=== PATIENT | male | born 1955 | race Caucasian/White ===

== ENCOUNTER 2021-08-19 19:11 | Inpatient (IN) | payer OTHER ==
[~2021-08-19] VITALS: Ht 172.7 cm; Wt 85.7 kg
[2021-08-19] MEDS ORDERED: PANTOPRAZOLE SODIUM 40 MG/VIAL IV ONE (19:30)
[2021-08-19] MEDS ORDERED: SODIUM CHLORIDE 0.9% 1,000 ML IV ONE (19:30)
[2021-08-19] MEDS ORDERED: FENTANYL 2500MCG/250ML PMX 250 ML IV ONE (19:30)
[2021-08-19] MEDS ORDERED: OCTREOTIDE 1,000 MCG in SODIUM CHLORIDE 0.9% 100 ML IV PRN (19:30)
[2021-08-19] MEDS ORDERED: SUCCINYLCHOLINE CHLORIDE 200MG/10ML IV ONE ×2 (19:30→21:45)
[2021-08-19] MEDS ORDERED: ETOMIDATE 2MG/ML 10ML VIAL IV ONE (19:30)
[2021-08-19] MEDS ORDERED: MIDAZOLAM 100MG/100ML PMX 100 ML IV SCH (19:30)
[2021-08-19 19:54] LABS: MEAN CORPUSCULAR HEMOGLOBIN 33.2 pg (28.0-32.0); MEAN CORPUSCULAR VOLUME 99.1 fL (80.0-94.0); MEAN PLATELET VOLUME 8.3 fl (7.4-10.4); PLATELET 136 x1000/uL (130-400); RED BLOOD CELL COUNT 1.26 mill/uL (4.7-6.1); RED CELL DISTRIBUTION WIDTH 14.3 % (11.6-14.6)
[2021-08-19 20:04] LABS: CHLORIDE 122 mEq/L (98-107)
[2021-08-19 20:05] LABS: INR 1.6; PROTHROMBIN TIME 16.7 sec (9.6-11.0)
[2021-08-19 20:08] LABS: ETHANOL BLOOD 54 mg/dL
[2021-08-19 20:11] LABS: HEMATOCRIT. 12.5 % (42.0-52.0); HEMOGLOBIN. 4.2 g/dL (14.0-18.0)
[2021-08-19] MEDS ORDERED: KCL 10MEQ/50ML PREMIX 50 ML IV ONE ×2 (20:45)
[2021-08-19 20:47] LABS: PLATELET ESTIMATE NORMAL
[2021-08-19 21:40] LABS: BG BASE EXCESS -12.8 mmol/L (-2.0-2.0); BG DEOXYHEMOGLOBIN 20.6 % (0.0-5.0); BG FRACTION INSPIRED OXYGEN 50; BG HCO3 ACT 15.8 mmol/L (22.0-26.0); BG OXYGEN SATURATION 79.2 % (92.0-98.5); BG OXYHEMOGLOBIN 78.4 % (94.0-97.0); BG PCO2 54.6 mmHg (35.0-45.0); BG PO2 67.7 mmHg (75.0-100.0); BG SAMPLE SITE RIGHT RADIAL; BG TOTAL HEMOGLOBIN 5.2 g/dL (12.0-18.0); BG VENT MODE VENT - AC
[2021-08-19] MEDS ORDERED: MIDAZOLAM HCL 2 MG/2 ML VIAL IV ONE (22:30)
[2021-08-19] MEDS ORDERED: IOHEXOL-350 100 ML BOTTLE ONE (22:33)
[2021-08-19] MEDS ORDERED: PROPOFOL 10MG/ML 100ML 100 ML IV PRN (23:30)
[2021-08-20] VITALS (93 sets, daily range): BP systolic 82–188; BP diastolic 36–77
[2021-08-20] MEDS ORDERED: DEXTROSE 50% WATER 50ML SYRINGE IV PRN (02:00)
[2021-08-20] MEDS ORDERED: SODIUM BICARBONATE 8.4% 1 MEQ/ML 50ML SYR IV SCH (02:30)
[2021-08-20] MEDS ORDERED: PROPOFOL 10MG/ML 100ML 100 ML IV PRN (02:30)
[2021-08-20] MEDS: FENTANYL 2500MCG/250ML PMX 250 ML IV PRN ×3 (02:42→20:42)
[2021-08-20] MEDS ORDERED: NOREPINEPHRINE 32 MG in DEXT 5% WATER 218 ML IV PRN (03:00)
[2021-08-20] MEDS ORDERED: OCTREOTIDE 1,000 MCG in SODIUM CHLORIDE 0.9% 98 ML IV PRN (03:00)
[2021-08-20] MEDS ORDERED: SODIUM CHL 0.9% + KCL 20MEQ/L 1,000 ML IV SCH (03:00)
[2021-08-20] MEDS ORDERED: PANTOPRAZOLE 80 MG in SODIUM CHLORIDE 0.9% 100 ML IV SCH (03:00)
[2021-08-20] MEDS: KCL 20MEQ/100ML PREMIX 100 ML IV ONE (04:08)
[2021-08-20] MEDS: KCL 20MEQ/100ML PREMIX 100 ML IV SCH ×2 (04:43→06:08)
[2021-08-20] MEDS: BLOOD SUGAR DIAGNOSTIC STRIP TEST SCH ×4 (06:02→23:34)
[2021-08-20] MEDS: INSULIN LISPRO 100 UNITS/ML SUBCUT SCH ×3 (06:03→17:47)
[2021-08-20] MEDS ORDERED: SUCCINYLCHOLINE CHLORIDE 200MG/10ML IV ONE (07:43)
[2021-08-20] MEDS ORDERED: ETOMIDATE 2MG/ML 10ML VIAL IV ONE (07:43)
[2021-08-20] MEDS ORDERED: ATEN100T MT (07:52)
[2021-08-20] MEDS ORDERED: LORA2ORA5 PO (07:52)
[2021-08-20] MEDS ORDERED: LISI40TA13 MT (07:52)
[2021-08-20] MEDS ORDERED: SIMV-46 PO (07:52)
[2021-08-20] MEDS ORDERED: SILD20TA PO (07:52)
[2021-08-20] MEDS ORDERED: SODIUM BICARBONATE 8.4% 1 MEQ/ML 50ML SYR IV NR (08:40)
[2021-08-20] MEDS ORDERED: SODIUM BICARBONATE 8.4% 1 MEQ/ML 50ML SYR IV ONE (08:41)
[2021-08-20 08:55] LABS: BASOPHILS % 0.2 % (0.0-2.0); EOSINOPHILS % 1.3 % (0.0-5.0); HEMATOCRIT. 24.9 % (42.0-52.0); HEMOGLOBIN. 8.5 g/dL (14.0-18.0); LYMPHOCYTES % 20.9 % (20.0-50.0); MEAN CORPUSCULAR HEMOGLOBIN 30.9 pg (28.0-32.0); MEAN CORPUSCULAR VOLUME 90.1 fL (80.0-94.0); MEAN PLATELET VOLUME 8.7 fl (7.4-10.4); MONOCYTES % 6.8 % (2.0-8.0); NEUTROPHILS % 70.8 % (40.0-76.0); PLATELET 155 x1000/uL (130-400); RED BLOOD CELL COUNT 2.76 mill/uL (4.7-6.1); RED CELL DISTRIBUTION WIDTH 15.5 % (11.6-14.6)
[2021-08-20 08:59] LABS: CHLORIDE 111 mEq/L (98-107)
[2021-08-20] MEDS ORDERED: ATROPINE SULFATE 1MG/10ML SYR IV NR (09:00)
[2021-08-20 09:07] LABS: INR 1.2; PHOSPHORUS 1.4 mg/dL (2.5-4.9); PROTHROMBIN TIME 12.4 sec (9.6-11.0)
[2021-08-20 09:08] LABS: BG BASE EXCESS -0.9 mmol/L (-2.0-2.0); BG CARBOXYHEMOGLOBIN 0.2 % (0.5-1.5); BG DEOXYHEMOGLOBIN 1.2 % (0.0-5.0); BG FRACTION INSPIRED OXYGEN 80; BG HCO3 ACT 20.2 mmol/L (22.0-26.0); BG METHEMOGLOBIN 0.6 % (0.0-1.5); BG OXYGEN SATURATION 98.8 % (92.0-98.5); BG PCO2 22.6 mmHg (35.0-45.0); BG PO2 390.3 mmHg (75.0-100.0); BG SAMPLE SITE LEFT BRACHIAL; BG TOTAL HEMOGLOBIN 9.1 g/dL (12.0-18.0); BG VENT MODE VENT - AC
[2021-08-20] MEDS ORDERED: IPRATROPIUM/ALBUTEROL 0.5-3(2.5)MG/3ML NEB HHN PRN (09:30)
[2021-08-20] MEDS ORDERED: CEFTRIAXONE 1 G PREMIX 50 ML IV ONE (09:30)
[2021-08-20] MEDS: MIDAZOLAM HCL 100 MG in SODIUM CHLORIDE 0.9% 80 ML IV PRN ×2 (10:39→20:42)
[2021-08-20] MEDS ORDERED: CALCIUM GLUCONATE 1GM PREMIX 50 ML IV NR (11:00)
[2021-08-20] MEDS ORDERED: SODIUM PHOS,M-BASIC-D-BASIC 15 MM in DEXT 5% WATER 245 ML IV NR (11:00)
[2021-08-20] MEDS ORDERED: MAGNESIUM 4 G PREMIX 100 ML IV NR (11:00)
[2021-08-20] MEDS: DEXT 5%/0.45% NACL 1000ML 1,000 ML IV SCH ×2 (11:07→23:34)
[2021-08-20] MEDS: CEFTRIAXONE 1,000 MG in DEXTROSE 5% WATER 50 ML IV SCH (11:32)
[2021-08-20] MEDS: PANTOPRAZOLE SODIUM 40 MG/VIAL IV SCH ×2 (11:38→21:47)
[2021-08-20] MEDS ORDERED: FOLIC ACID 1 MG, THIAMINE HCL 100 MG, MVI, ADULT NO.1 10 ML in DEXTROSE 5% WATER 1,000 ML IV ONE ×4 (12:00)
[2021-08-20 12:25] LABS: TOTAL IRON BINDING CAPACITY 347 ug/dL (250-450)
[2021-08-20 12:39] LABS: FERRITIN 31 ng/mL (22-322)
[2021-08-20 12:51] LABS: VITAMIN B12 SERUM 316 pg/mL (211-911)
[2021-08-20] MEDS ORDERED: MIDAZOLAM HCL 5 MG/5 ML VIAL ONE (13:59)
[2021-08-20] MEDS ORDERED: FENTANYL CITRATE/PF 50MCG/ML 2ML VIAL ONE (13:59)
[2021-08-20] MEDS ORDERED: OCTREOTIDE 1,000 MCG in SODIUM CHLORIDE 0.9% 98 ML IV SCH (14:00)
[2021-08-20] MEDS ORDERED: MIDAZOLAM HCL 5 MG/5 ML VIAL IV PRN (14:15)
[2021-08-20] MEDS: IPRATROPIUM/ALBUTEROL 0.5-3(2.5)MG/3ML NEB HHN SCH (20:19)
[2021-08-20] MEDS: NOREPINEPHRINE 32 MG in DEXT 5% WATER 218 ML IV PRN (20:44)
[2021-08-21] VITALS (90 sets, daily range): BP systolic 79–161; BP diastolic 30–119
[2021-08-21] MEDS: INSULIN LISPRO 100 UNITS/ML SUBCUT SCH ×4 (00:13→17:42)
[2021-08-21] MEDS: IPRATROPIUM/ALBUTEROL 0.5-3(2.5)MG/3ML NEB HHN SCH ×4 (02:15→20:23)
[2021-08-21] MEDS: BLOOD SUGAR DIAGNOSTIC STRIP TEST SCH ×3 (05:54→17:42)
[2021-08-21 05:58] LABS: BASOPHILS % 0.4 % (0.0-2.0); EOSINOPHILS % 1.6 % (0.0-5.0); HEMATOCRIT. 24.4 % (42.0-52.0); HEMOGLOBIN. 8.2 g/dL (14.0-18.0); LYMPHOCYTES % 11.7 % (20.0-50.0); MEAN CORPUSCULAR HEMOGLOBIN 30.7 pg (28.0-32.0); MEAN CORPUSCULAR VOLUME 91.1 fL (80.0-94.0); MEAN PLATELET VOLUME 8.6 fl (7.4-10.4); MONOCYTES % 4.4 % (2.0-8.0); NEUTROPHILS % 81.9 % (40.0-76.0); PLATELET 155 x1000/uL (130-400); RED BLOOD CELL COUNT 2.68 mill/uL (4.7-6.1); RED CELL DISTRIBUTION WIDTH 16.5 % (11.6-14.6)
[2021-08-21 06:07] LABS: CHLORIDE 112 mEq/L (98-107); INR 1.1; PROTHROMBIN TIME 11.3 sec (9.6-11.0)
[2021-08-21 06:14] LABS: PHOSPHORUS 3.2 mg/dL (2.5-4.9)
[2021-08-21] MEDS: MIDAZOLAM HCL 100 MG in SODIUM CHLORIDE 0.9% 80 ML IV PRN ×2 (06:31→17:43)
[2021-08-21] MEDS: FENTANYL 2500MCG/250ML PMX 250 ML IV PRN ×2 (06:33→21:18)
[2021-08-21] MEDS: PANTOPRAZOLE SODIUM 40 MG/VIAL IV SCH ×2 (08:18→21:09)
[2021-08-21 08:38] LABS: BG BASE EXCESS -4.3 mmol/L (-2.0-2.0); BG CARBOXYHEMOGLOBIN 0.3 % (0.5-1.5); BG DEOXYHEMOGLOBIN 4.7 % (0.0-5.0); BG HCO3 ACT 19.2 mmol/L (22.0-26.0); BG METHEMOGLOBIN 0.5 % (0.0-1.5); BG OXYGEN SATURATION 95.3 % (92.0-98.5); BG OXYHEMOGLOBIN 94.5 % (94.0-97.0); BG PCO2 29.6 mmHg (35.0-45.0); BG PO2 83.7 mmHg (75.0-100.0); BG SAMPLE SITE LEFT BRACHIAL; BG TOTAL HEMOGLOBIN 9.1 g/dL (12.0-18.0); BG VENT MODE VENT - AC
[2021-08-21] MEDS ORDERED: POTASSIUM CHLORIDE 20MEQ/PACKET PO SCH (09:45)
[2021-08-21] MEDS: CEFTRIAXONE 1,000 MG in DEXTROSE 5% WATER 50 ML IV SCH (10:29)
[2021-08-21] MEDS: SUCRALFATE 1 G/10 ML UDC PO SCH ×3 (10:30→21:09)
[2021-08-21] MEDS: ACETAMINOPHEN 650MG/20.3ML UDC PO PRN (12:37)
[2021-08-21] MEDS: DEXT 5%/0.45% NACL 1000ML 1,000 ML IV SCH (12:37)
[2021-08-21] MEDS: CHLORDIAZEPOXIDE 25MG CAPSULE NG SCH ×2 (13:58→21:09)
[2021-08-22] VITALS (77 sets, daily range): BP systolic 71–129; BP diastolic 32–90
[2021-08-22] MEDS: IPRATROPIUM/ALBUTEROL 0.5-3(2.5)MG/3ML NEB HHN SCH ×4 (00:13→20:58)
[2021-08-22] MEDS: BLOOD SUGAR DIAGNOSTIC STRIP TEST SCH ×5 (00:54→23:52)
[2021-08-22] MEDS: NOREPINEPHRINE 32 MG in DEXT 5% WATER 218 ML IV PRN ×2 (01:09→17:23)
[2021-08-22] MEDS: DEXT 5%/0.45% NACL 1000ML 1,000 ML IV SCH ×2 (03:22→16:47)
[2021-08-22] MEDS: MIDAZOLAM HCL 100 MG in SODIUM CHLORIDE 0.9% 80 ML IV PRN ×2 (04:12→17:23)
[2021-08-22] MEDS: CHLORDIAZEPOXIDE 25MG CAPSULE NG SCH ×3 (05:15→21:05)
[2021-08-22] MEDS: INSULIN LISPRO 100 UNITS/ML SUBCUT SCH ×5 (05:15→23:52)
[2021-08-22 05:19] LABS: HEMATOCRIT. 24.3 % (42.0-52.0); HEMOGLOBIN. 8.1 g/dL (14.0-18.0); MEAN CORPUSCULAR HEMOGLOBIN 31.1 pg (28.0-32.0); MEAN CORPUSCULAR VOLUME 93.3 fL (80.0-94.0); MEAN PLATELET VOLUME 9.2 fl (7.4-10.4); PLATELET 167 x1000/uL (130-400); RED BLOOD CELL COUNT 2.61 mill/uL (4.7-6.1); RED CELL DISTRIBUTION WIDTH 16.7 % (11.6-14.6)
[2021-08-22] MEDS: SUCRALFATE 1 G/10 ML UDC PO SCH ×4 (05:37→20:03)
[2021-08-22] MEDS: PANTOPRAZOLE SODIUM 40 MG/VIAL IV SCH ×2 (09:33→20:03)
[2021-08-22] MEDS: FENTANYL 2500MCG/250ML PMX 250 ML IV PRN ×2 (10:16→22:31)
[2021-08-22] MEDS: PIPERACILLIN/TAZOBACTAM 3.375 G in DEXTROSE 5% WATER 50 ML IV SCH ×2 (12:23→21:50)
[2021-08-22 13:00] LABS: PLATELET ESTIMATE NORMAL
[2021-08-23] VITALS (98 sets, daily range): BP systolic 91–164; BP diastolic 44–72
[2021-08-23] MEDS: IPRATROPIUM/ALBUTEROL 0.5-3(2.5)MG/3ML NEB HHN SCH ×4 (02:43→20:12)
[2021-08-23] MEDS: CHLORDIAZEPOXIDE 25MG CAPSULE NG SCH ×3 (05:04→22:15)
[2021-08-23] MEDS: PIPERACILLIN/TAZOBACTAM 3.375 G in DEXTROSE 5% WATER 50 ML IV SCH ×3 (05:05→22:15)
[2021-08-23] MEDS: DEXT 5%/0.45% NACL 1000ML 1,000 ML IV SCH ×2 (05:05→18:34)
[2021-08-23] MEDS: MIDAZOLAM HCL 100 MG in SODIUM CHLORIDE 0.9% 80 ML IV PRN ×2 (05:24→23:27)
[2021-08-23 05:33] LABS: MEAN CORPUSCULAR HEMOGLOBIN 30.5 pg (28.0-32.0); PLATELET 127 x1000/uL (130-400); RED BLOOD CELL COUNT 2.19 mill/uL (4.7-6.1); RED CELL DISTRIBUTION WIDTH 16.8 % (11.6-14.6)
[2021-08-23] MEDS: INSULIN LISPRO 100 UNITS/ML SUBCUT SCH ×3 (05:40→17:26)
[2021-08-23] MEDS: BLOOD SUGAR DIAGNOSTIC STRIP TEST SCH ×3 (05:40→17:26)
[2021-08-23 06:26] LABS: HEMATOCRIT. 20.1 % (42.0-52.0); HEMOGLOBIN. 6.7 g/dL (14.0-18.0)
[2021-08-23] MEDS: SUCRALFATE 1 G/10 ML UDC PO SCH ×4 (06:30→21:23)
[2021-08-23 07:36] LABS: PLATELET ESTIMATE SLIGHTLY DECREASED
[2021-08-23] MEDS: PANTOPRAZOLE SODIUM 40 MG/VIAL IV SCH ×2 (08:05→21:23)
[2021-08-23] MEDS: FENTANYL 2500MCG/250ML PMX 250 ML IV PRN (11:55)
[2021-08-23] MEDS: DOCUSATE SODIUM SUGAR FREE 100MG/10ML UDC NG SCH (13:38)
[2021-08-23] MEDS: METOCLOPRAMIDE HCL 10MG/2ML VIAL IV SCH (17:26)
[2021-08-23 20:20] LABS: HEMATOCRIT 26.9 % (42.0-52.0); HEMOGLOBIN 9.3 g/dL (14.0-18.0)
[2021-08-24] VITALS (72 sets, daily range): BP systolic 89–141; BP diastolic 42–84
[2021-08-24] MEDS: IPRATROPIUM/ALBUTEROL 0.5-3(2.5)MG/3ML NEB HHN SCH ×5 (00:07→20:53)
[2021-08-24] MEDS: BLOOD SUGAR DIAGNOSTIC STRIP TEST SCH ×4 (00:27→17:15)
[2021-08-24] MEDS: METOCLOPRAMIDE HCL 10MG/2ML VIAL IV SCH ×4 (00:34→17:15)
[2021-08-24 01:13] LABS: HEMATOCRIT 26.6 % (42.0-52.0); HEMOGLOBIN 9.4 g/dL (14.0-18.0)
[2021-08-24] MEDS: FENTANYL 2500MCG/250ML PMX 250 ML IV PRN (01:13)
[2021-08-24] MEDS: INSULIN LISPRO 100 UNITS/ML SUBCUT SCH ×4 (06:00→17:15)
[2021-08-24] MEDS: PIPERACILLIN/TAZOBACTAM 3.375 G in DEXTROSE 5% WATER 50 ML IV SCH ×3 (06:03→22:57)
[2021-08-24] MEDS: SUCRALFATE 1 G/10 ML UDC PO SCH ×4 (06:03→21:34)
[2021-08-24] MEDS: CHLORDIAZEPOXIDE 25MG CAPSULE NG SCH ×3 (06:04→22:58)
[2021-08-24 06:07] LABS: HEMATOCRIT. 25.3 % (42.0-52.0); HEMOGLOBIN. 8.8 g/dL (14.0-18.0); MEAN CORPUSCULAR HEMOGLOBIN 31.8 pg (28.0-32.0); MEAN CORPUSCULAR VOLUME 90.8 fL (80.0-94.0); MEAN PLATELET VOLUME 8.9 fl (7.4-10.4); PLATELET 110 x1000/uL (130-400); RED BLOOD CELL COUNT 2.78 mill/uL (4.7-6.1); RED CELL DISTRIBUTION WIDTH 15.5 % (11.6-14.6)
[2021-08-24 07:42] LABS: PLATELET ESTIMATE SLIGHTLY DECREASED
[2021-08-24] MEDS: PANTOPRAZOLE SODIUM 40 MG/VIAL IV SCH ×2 (08:37→21:34)
[2021-08-24] MEDS: DOCUSATE SODIUM SUGAR FREE 100MG/10ML UDC NG SCH (08:37)
[2021-08-24] MEDS: DEXT 5%/0.45% NACL 1000ML 1,000 ML IV SCH ×2 (08:38→21:35)
[2021-08-24 13:09] LABS: HEMATOCRIT 27.2 % (42.0-52.0); HEMOGLOBIN 9.1 g/dL (14.0-18.0)
[2021-08-25] VITALS (73 sets, daily range): BP systolic 93–169; BP diastolic 34–98
[2021-08-25] MEDS: METOCLOPRAMIDE HCL 10MG/2ML VIAL IV SCH ×4 (01:21→18:04)
[2021-08-25] MEDS: IPRATROPIUM/ALBUTEROL 0.5-3(2.5)MG/3ML NEB HHN SCH ×4 (01:41→20:40)
[2021-08-25] MEDS: FENTANYL 2500MCG/250ML PMX 250 ML IV PRN (01:59)
[2021-08-25] MEDS: ACETAMINOPHEN 650MG/20.3ML UDC PO PRN ×2 (04:14→11:22)
[2021-08-25 05:26] LABS: HEMATOCRIT. 23.9 % (42.0-52.0); HEMOGLOBIN. 8.4 g/dL (14.0-18.0); MEAN CORPUSCULAR HEMOGLOBIN 32.1 pg (28.0-32.0); MEAN CORPUSCULAR VOLUME 91.2 fL (80.0-94.0); MEAN PLATELET VOLUME 8.7 fl (7.4-10.4); PLATELET 117 x1000/uL (130-400); RED BLOOD CELL COUNT 2.62 mill/uL (4.7-6.1); RED CELL DISTRIBUTION WIDTH 15.3 % (11.6-14.6)
[2021-08-25] MEDS: BLOOD SUGAR DIAGNOSTIC STRIP TEST SCH ×4 (05:31→17:55)
[2021-08-25] MEDS: INSULIN LISPRO 100 UNITS/ML SUBCUT SCH ×4 (05:31→17:55)
[2021-08-25] MEDS: SUCRALFATE 1 G/10 ML UDC PO SCH ×4 (05:38→21:49)
[2021-08-25] MEDS: PIPERACILLIN/TAZOBACTAM 3.375 G in DEXTROSE 5% WATER 50 ML IV SCH ×3 (05:38→21:48)
[2021-08-25] MEDS: CHLORDIAZEPOXIDE 25MG CAPSULE NG SCH ×3 (05:38→21:49)
[2021-08-25 07:27] LABS: PLATELET ESTIMATE DECREASED
[2021-08-25] MEDS: PANTOPRAZOLE SODIUM 40 MG/VIAL IV SCH ×2 (09:32→21:00)
[2021-08-25] MEDS: DOCUSATE SODIUM SUGAR FREE 100MG/10ML UDC NG SCH (09:32)
[2021-08-25] MEDS ORDERED: POTASSIUM CHLORIDE 20MEQ/PACKET NG SCH (10:00)
[2021-08-25] MEDS ORDERED: DILTIAZEM HCL 5MG/ML 5ML VIAL IV NR (11:00)
[2021-08-25] MEDS: DEXT 5%/0.45% NACL 1000ML 1,000 ML IV SCH (11:23)
[2021-08-25 11:40] LABS: BG BASE EXCESS -6.6 mmol/L (-2.0-2.0); BG CARBOXYHEMOGLOBIN 0.3 % (0.5-1.5); BG DEOXYHEMOGLOBIN 2.8 % (0.0-5.0); BG FRACTION INSPIRED OXYGEN 35; BG METHEMOGLOBIN 0.4 % (0.0-1.5); BG OXYGEN SATURATION 97.2 % (92.0-98.5); BG OXYHEMOGLOBIN 96.5 % (94.0-97.0); BG PCO2 32.3 mmHg (35.0-45.0); BG PH 7.364 (7.350-7.450); BG PO2 99.6 mmHg (75.0-100.0); BG SAMPLE SITE LEFT RADIAL; BG TOTAL HEMOGLOBIN 9.1 g/dL (12.0-18.0); BG VENT MODE VENT - CPAP
[2021-08-25] MEDS: ACETYLCYSTEINE 100MG/ML 10% VIAL 4ML INH SCH (13:59)
[2021-08-25] MEDS ORDERED: POTASSIUM CHLORIDE 20MEQ/PACKET PO NR (14:15)
[2021-08-25] MEDS: LORAZEPAM 2MG/ML CPJ IV PRN ×2 (15:14→21:48)
[2021-08-25] MEDS: METOPROLOL TARTRATE 25MG TABLET PO SCH ×2 (15:15→23:31)
[2021-08-26] VITALS (54 sets, daily range): BP systolic 99–173; BP diastolic 38–134
[2021-08-26] MEDS: DEXT 5%/0.45% NACL 1000ML 1,000 ML IV SCH ×2 (00:39→13:23)
[2021-08-26] MEDS: METOCLOPRAMIDE HCL 10MG/2ML VIAL IV SCH ×3 (00:39→11:25)
[2021-08-26] MEDS: BLOOD SUGAR DIAGNOSTIC STRIP TEST SCH ×3 (00:40→11:25)
[2021-08-26 05:25] LABS: HEMOGLOBIN. 8.5 g/dL (14.0-18.0); MEAN CORPUSCULAR VOLUME 90.6 fL (80.0-94.0); MEAN PLATELET VOLUME 8.4 fl (7.4-10.4); PLATELET 153 x1000/uL (130-400); RED BLOOD CELL COUNT 2.65 mill/uL (4.7-6.1); RED CELL DISTRIBUTION WIDTH 15.1 % (11.6-14.6)
[2021-08-26] MEDS: INSULIN LISPRO 100 UNITS/ML SUBCUT SCH ×3 (06:00→11:27)
[2021-08-26] MEDS: SUCRALFATE 1 G/10 ML UDC PO SCH ×3 (06:25→21:01)
[2021-08-26] MEDS: PIPERACILLIN/TAZOBACTAM 3.375 G in DEXTROSE 5% WATER 50 ML IV SCH ×3 (06:25→22:06)
[2021-08-26] MEDS: ACETAMINOPHEN 650MG/20.3ML UDC PO PRN ×2 (06:25→19:40)
[2021-08-26] MEDS: CHLORDIAZEPOXIDE 25MG CAPSULE NG SCH (06:26)
[2021-08-26] MEDS: LORAZEPAM 2MG/ML CPJ IV PRN ×3 (06:28→15:05)
[2021-08-26] MEDS: ACETYLCYSTEINE 100MG/ML 10% VIAL 4ML INH SCH ×2 (07:36→13:44)
[2021-08-26] MEDS: IPRATROPIUM/ALBUTEROL 0.5-3(2.5)MG/3ML NEB HHN SCH ×3 (07:36→19:53)
[2021-08-26 07:38] LABS: PLATELET ESTIMATE NORMAL
[2021-08-26] MEDS: DOCUSATE SODIUM SUGAR FREE 100MG/10ML UDC NG SCH (08:22)
[2021-08-26] MEDS: PANTOPRAZOLE SODIUM 40 MG/VIAL IV SCH ×2 (08:22→21:01)
[2021-08-26] MEDS: METOPROLOL TARTRATE 25MG TABLET PO SCH ×2 (08:22→21:01)
[2021-08-26 08:30] LABS: BG BASE EXCESS -6.9 mmol/L (-2.0-2.0); BG CARBOXYHEMOGLOBIN 0.3 % (0.5-1.5); BG DEOXYHEMOGLOBIN 1.5 % (0.0-5.0); BG FRACTION INSPIRED OXYGEN 35; BG HCO3 ACT 16.2 mmol/L (22.0-26.0); BG METHEMOGLOBIN 0.3 % (0.0-1.5); BG OXYGEN SATURATION 98.5 % (92.0-98.5); BG OXYHEMOGLOBIN 97.9 % (94.0-97.0); BG PCO2 24.5 mmHg (35.0-45.0); BG PH 7.438 (7.350-7.450); BG PO2 126.3 mmHg (75.0-100.0); BG SAMPLE SITE RIGHT RADIAL; BG TOTAL HEMOGLOBIN 8.6 g/dL (12.0-18.0); BG VENT MODE VENT - SIMV
[2021-08-26] MEDS: CHLORDIAZEPOXIDE 5 MG CAPSULE NG SCH ×2 (13:22→22:06)
[2021-08-27] VITALS (31 sets, daily range): BP systolic 94–165; BP diastolic 48–107
[2021-08-27] MEDS: ACETYLCYSTEINE 100MG/ML 10% VIAL 4ML INH SCH ×3 (00:02→14:13)
[2021-08-27] MEDS: IPRATROPIUM/ALBUTEROL 0.5-3(2.5)MG/3ML NEB HHN SCH ×4 (00:02→20:36)
[2021-08-27] MEDS: INSULIN LISPRO 100 UNITS/ML SUBCUT SCH ×4 (00:06→18:00)
[2021-08-27] MEDS: BLOOD SUGAR DIAGNOSTIC STRIP TEST SCH ×4 (00:06→18:46)
[2021-08-27] MEDS: METOCLOPRAMIDE HCL 10MG/2ML VIAL IV SCH ×4 (00:10→18:53)
[2021-08-27] MEDS: ACETAMINOPHEN 650MG/20.3ML UDC PO PRN ×2 (02:15→20:23)
[2021-08-27 05:33] LABS: HEMATOCRIT. 23.8 % (42.0-52.0); HEMOGLOBIN. 8.2 g/dL (14.0-18.0); MEAN CORPUSCULAR VOLUME 90.4 fL (80.0-94.0); MEAN PLATELET VOLUME 8.2 fl (7.4-10.4); PLATELET 181 x1000/uL (130-400); RED BLOOD CELL COUNT 2.63 mill/uL (4.7-6.1); RED CELL DISTRIBUTION WIDTH 14.8 % (11.6-14.6)
[2021-08-27 05:44] LABS: CHLORIDE 112 mEq/L (98-107)
[2021-08-27] MEDS: PIPERACILLIN/TAZOBACTAM 3.375 G in DEXTROSE 5% WATER 50 ML IV SCH (06:15)
[2021-08-27] MEDS: SUCRALFATE 1 G/10 ML UDC PO SCH ×4 (06:15→20:22)
[2021-08-27] MEDS: CHLORDIAZEPOXIDE 5 MG CAPSULE NG SCH (06:15)
[2021-08-27] MEDS: LORAZEPAM 2MG/ML CPJ IV PRN (06:43)
[2021-08-27 07:54] LABS: BG BASE EXCESS -5.4 mmol/L (-2.0-2.0); BG CARBOXYHEMOGLOBIN 0.3 % (0.5-1.5); BG DEOXYHEMOGLOBIN 2.2 % (0.0-5.0); BG HCO3 ACT 17.2 mmol/L (22.0-26.0); BG METHEMOGLOBIN 0.3 % (0.0-1.5); BG OXYGEN SATURATION 97.8 % (92.0-98.5); BG OXYHEMOGLOBIN 97.2 % (94.0-97.0); BG PCO2 24.1 mmHg (35.0-45.0); BG PH 7.472 (7.350-7.450); BG PO2 97.2 mmHg (75.0-100.0); BG SAMPLE SITE RIGHT RADIAL; BG TOTAL HEMOGLOBIN 8.4 g/dL (12.0-18.0); BG VENT MODE VENT - AC
[2021-08-27 08:00] LABS: PLATELET ESTIMATE NORMAL
[2021-08-27] MEDS: DOCUSATE SODIUM SUGAR FREE 100MG/10ML UDC NG SCH (08:24)
[2021-08-27] MEDS: PANTOPRAZOLE SODIUM 40 MG/VIAL IV SCH ×2 (08:24→20:22)
[2021-08-27] MEDS: METOPROLOL TARTRATE 25MG TABLET PO SCH ×2 (08:25→20:24)
[2021-08-27] MEDS ORDERED: POTASSIUM CHLORIDE 20MEQ TABLET SR PO SCH (09:45)
[2021-08-27] MEDS ORDERED: FLUMAZENIL 0.1 MG/ML 5ML VIAL IV SCH (10:00)
[2021-08-27] MEDS ORDERED: VANCOMYCIN 1,750 MG in DEXT 5% WATER 500 ML IV NR (12:00)
[2021-08-27] MEDS: DEXT 5%/0.45% NACL 1000ML 1,000 ML IV SCH ×2 (12:31→15:17)
[2021-08-27] MEDS ORDERED: VANCOMYCIN 1GM PMX (XELLIA) 200 ML IV SCH (23:00)
[2021-08-28] VITALS (48 sets, daily range): BP systolic 115–174; BP diastolic 35–99
[2021-08-28] MEDS: METOCLOPRAMIDE HCL 10MG/2ML VIAL IV SCH ×4 (00:12→17:16)
[2021-08-28] MEDS: IPRATROPIUM/ALBUTEROL 0.5-3(2.5)MG/3ML NEB HHN SCH ×4 (00:18→19:43)
[2021-08-28] MEDS: ACETYLCYSTEINE 100MG/ML 10% VIAL 4ML INH SCH ×3 (00:18→12:55)
[2021-08-28] MEDS: SUCRALFATE 1 G/10 ML UDC PO SCH ×4 (05:54→21:05)
[2021-08-28] MEDS: VANCOMYCIN 1GM PMX (XELLIA) 200 ML IV SCH (05:54)
[2021-08-28] MEDS: ACETAMINOPHEN 650MG/20.3ML UDC PO PRN ×2 (05:55→14:20)
[2021-08-28] MEDS: DEXT 5%/0.45% NACL 1000ML 1,000 ML IV SCH ×2 (05:56→17:28)
[2021-08-28] MEDS: INSULIN LISPRO 100 UNITS/ML SUBCUT SCH ×4 (06:00→17:24)
[2021-08-28] MEDS: BLOOD SUGAR DIAGNOSTIC STRIP TEST SCH ×4 (06:03→17:24)
[2021-08-28 06:09] LABS: CHLORIDE 110 mEq/L (98-107)
[2021-08-28] MEDS ORDERED: POTASSIUM CHLORIDE 20MEQ/PACKET PO SCH (07:30)
[2021-08-28 08:44] LABS: BG BASE EXCESS -4.4 mmol/L (-2.0-2.0); BG CARBOXYHEMOGLOBIN 0.1 % (0.5-1.5); BG FRACTION INSPIRED OXYGEN 35; BG HCO3 ACT 18.1 mmol/L (22.0-26.0); BG METHEMOGLOBIN 0.5 % (0.0-1.5); BG OXYHEMOGLOBIN 98.4 % (94.0-97.0); BG PCO2 24.4 mmHg (35.0-45.0); BG PH 7.489 (7.350-7.450); BG PO2 166.9 mmHg (75.0-100.0); BG SAMPLE SITE RIGHT RADIAL; BG TOTAL HEMOGLOBIN 7.8 g/dL (12.0-18.0); BG VENT MODE VENT - AC
[2021-08-28] MEDS ORDERED: [UNRECOGNIZED DRUG - REMARK] XX SCH (09:30)
[2021-08-28] MEDS: PANTOPRAZOLE SODIUM 40 MG/VIAL IV SCH ×2 (09:48→21:05)
[2021-08-28] MEDS: METOPROLOL TARTRATE 25MG TABLET PO SCH ×2 (09:49→21:06)
[2021-08-28] MEDS: DOCUSATE SODIUM SUGAR FREE 100MG/10ML UDC NG SCH (09:50)
[2021-08-28] MEDS: MEROPENEM 1,000 MG in SODIUM CHLORIDE 0.9% 100 ML IV SCH ×2 (10:45→17:15)
[2021-08-28 11:56] LABS: CREATINE KINASE 121 IU/L (39-308)
[2021-08-28] MEDS ORDERED: LORAZEPAM 2MG/ML CPJ IV NR (12:45)
[2021-08-29] VITALS (53 sets, daily range): BP systolic 101–185; BP diastolic 55–137
[2021-08-29] MEDS: ACETYLCYSTEINE 100MG/ML 10% VIAL 4ML INH SCH ×3 (00:03→13:33)
[2021-08-29] MEDS: IPRATROPIUM/ALBUTEROL 0.5-3(2.5)MG/3ML NEB HHN SCH ×4 (00:04→20:46)
[2021-08-29] MEDS: VANCOMYCIN 1GM PMX (XELLIA) 200 ML IV SCH ×2 (00:37→18:02)
[2021-08-29] MEDS: METOCLOPRAMIDE HCL 10MG/2ML VIAL IV SCH ×4 (00:37→18:02)
[2021-08-29] MEDS: BLOOD SUGAR DIAGNOSTIC STRIP TEST SCH ×4 (00:37→18:01)
[2021-08-29] MEDS: MEROPENEM 1,000 MG in SODIUM CHLORIDE 0.9% 100 ML IV SCH ×3 (02:26→18:02)
[2021-08-29] MEDS: ACETAMINOPHEN 650MG/20.3ML UDC PO PRN ×2 (04:28→15:57)
[2021-08-29 05:36] LABS: HEMATOCRIT. 22.5 % (42.0-52.0); HEMOGLOBIN. 7.8 g/dL (14.0-18.0); MEAN CORPUSCULAR HEMOGLOBIN 31.5 pg (28.0-32.0); MEAN CORPUSCULAR VOLUME 90.4 fL (80.0-94.0); MEAN PLATELET VOLUME 8.3 fl (7.4-10.4); PLATELET 249 x1000/uL (130-400); RED BLOOD CELL COUNT 2.49 mill/uL (4.7-6.1); RED CELL DISTRIBUTION WIDTH 15.3 % (11.6-14.6)
[2021-08-29 05:39] LABS: CHLORIDE 114 mEq/L (98-107)
[2021-08-29] MEDS: INSULIN LISPRO 100 UNITS/ML SUBCUT SCH ×4 (06:00→18:00)
[2021-08-29 07:47] LABS: BG BASE EXCESS -7.1 mmol/L (-2.0-2.0); BG CARBOXYHEMOGLOBIN 0.3 % (0.5-1.5); BG DEOXYHEMOGLOBIN 1.1 % (0.0-5.0); BG HCO3 ACT 16.3 mmol/L (22.0-26.0); BG METHEMOGLOBIN 0.4 % (0.0-1.5); BG OXYGEN SATURATION 98.9 % (92.0-98.5); BG OXYHEMOGLOBIN 98.2 % (94.0-97.0); BG PCO2 25.9 mmHg (35.0-45.0); BG PH 7.418 (7.350-7.450); BG PO2 139.1 mmHg (75.0-100.0); BG SAMPLE SITE RIGHT RADIAL; BG TOTAL HEMOGLOBIN 8.4 g/dL (12.0-18.0); BG VENT MODE VENT - AC
[2021-08-29 07:51] LABS: PLATELET ESTIMATE NORMAL
[2021-08-29] MEDS ORDERED: POTASSIUM CHLORIDE 20MEQ/PACKET PO NR (09:20)
[2021-08-29] MEDS: PANTOPRAZOLE SODIUM 40 MG/VIAL IV SCH ×2 (09:21→20:54)
[2021-08-29] MEDS: METOPROLOL TARTRATE 25MG TABLET PO SCH ×2 (09:21→20:54)
[2021-08-29] MEDS: SUCRALFATE 1 G/10 ML UDC PO SCH ×4 (09:21→20:54)
[2021-08-29] MEDS: DOCUSATE SODIUM SUGAR FREE 100MG/10ML UDC NG SCH (09:22)
[2021-08-29] MEDS: DEXT 5%/0.45% NACL 1000ML 1,000 ML IV SCH ×2 (09:23→23:41)
[2021-08-29] MEDS ORDERED: MORPHINE SULFATE 2 MG/ML CPJ (NOT FOR IM USE) IV NR (10:23)
[2021-08-29] MEDS ORDERED: NALOXONE HCL 0.4MG/ML VIAL IV PRN (10:30)
[2021-08-29] MEDS ORDERED: MORPHINE SULFATE 2 MG/ML CPJ (NOT FOR IM USE) IV SCH (12:15)
[2021-08-29] MEDS: AMLODIPINE 10MG TABLET PO SCH (12:29)
[2021-08-29 13:34] LABS: BG BASE EXCESS -6.8 mmol/L (-2.0-2.0); BG CARBOXYHEMOGLOBIN 0.3 % (0.5-1.5); BG DEOXYHEMOGLOBIN 1.1 % (0.0-5.0); BG METHEMOGLOBIN 0.3 % (0.0-1.5); BG OXYGEN SATURATION 98.9 % (92.0-98.5); BG OXYHEMOGLOBIN 98.3 % (94.0-97.0); BG PCO2 24.2 mmHg (35.0-45.0); BG PH 7.438 (7.350-7.450); BG PO2 163.2 mmHg (75.0-100.0); BG SAMPLE SITE RIGHT RADIAL; BG TOTAL HEMOGLOBIN 10.2 g/dL (12.0-18.0); BG VENT MODE VENT - CPAP
[2021-08-29] MEDS: LORAZEPAM 2MG/ML CPJ IV PRN (14:26)
[2021-08-30] VITALS (52 sets, daily range): BP systolic 108–221; BP diastolic 57–142
[2021-08-30] MEDS: BLOOD SUGAR DIAGNOSTIC STRIP TEST SCH ×5 (00:02→23:45)
[2021-08-30] MEDS: METOCLOPRAMIDE HCL 10MG/2ML VIAL IV SCH ×5 (00:03→23:51)
[2021-08-30] MEDS: ACETAMINOPHEN 650MG/20.3ML UDC PO PRN ×3 (00:03→18:13)
[2021-08-30] MEDS: ACETYLCYSTEINE 100MG/ML 10% VIAL 4ML INH SCH ×2 (00:38→14:22)
[2021-08-30] MEDS: IPRATROPIUM/ALBUTEROL 0.5-3(2.5)MG/3ML NEB HHN SCH ×4 (00:38→21:12)
[2021-08-30] MEDS: MEROPENEM 1,000 MG in SODIUM CHLORIDE 0.9% 100 ML IV SCH ×3 (02:27→18:13)
[2021-08-30 05:35] LABS: HEMATOCRIT. 21.4 % (42.0-52.0); HEMOGLOBIN. 7.3 g/dL (14.0-18.0); MEAN CORPUSCULAR HEMOGLOBIN 30.9 pg (28.0-32.0); MEAN CORPUSCULAR VOLUME 90.4 fL (80.0-94.0); MEAN PLATELET VOLUME 8.2 fl (7.4-10.4); PLATELET 309 x1000/uL (130-400); RED BLOOD CELL COUNT 2.37 mill/uL (4.7-6.1); RED CELL DISTRIBUTION WIDTH 15.3 % (11.6-14.6)
[2021-08-30 05:45] LABS: CHLORIDE 113 mEq/L (98-107)
[2021-08-30] MEDS: INSULIN LISPRO 100 UNITS/ML SUBCUT SCH ×5 (06:00→23:45)
[2021-08-30] MEDS: SUCRALFATE 1 G/10 ML UDC PO SCH ×4 (06:30→21:38)
[2021-08-30 07:47] LABS: BG BASE EXCESS -8.2 mmol/L (-2.0-2.0); BG CARBOXYHEMOGLOBIN 0.3 % (0.5-1.5); BG HCO3 ACT 14.7 mmol/L (22.0-26.0); BG METHEMOGLOBIN 0.6 % (0.0-1.5); BG OXYHEMOGLOBIN 98.1 % (94.0-97.0); BG PCO2 21.4 mmHg (35.0-45.0); BG PH 7.454 (7.350-7.450); BG PO2 139.8 mmHg (75.0-100.0); BG SAMPLE SITE RIGHT RADIAL; BG TOTAL HEMOGLOBIN 7.5 g/dL (12.0-18.0); BG VENT MODE VENT - SIMV
[2021-08-30] MEDS: DOCUSATE SODIUM SUGAR FREE 100MG/10ML UDC NG SCH (09:00)
[2021-08-30] MEDS: PANTOPRAZOLE SODIUM 40 MG/VIAL IV SCH ×2 (09:01→21:38)
[2021-08-30] MEDS: METOPROLOL TARTRATE 25MG TABLET PO SCH ×2 (09:01→21:39)
[2021-08-30] MEDS: AMLODIPINE 10MG TABLET PO SCH (09:01)
[2021-08-30] MEDS: LORAZEPAM 2MG/ML CPJ IV PRN ×4 (09:23→23:51)
[2021-08-30 10:23] LABS: PLATELET ESTIMATE NORMAL
[2021-08-30] MEDS: DEXT 5%/0.45% NACL 1000ML 1,000 ML IV SCH (10:45)
[2021-08-30] MEDS: VANCOMYCIN 1GM PMX (XELLIA) 200 ML IV SCH (11:17)
[2021-08-30 16:18] LABS: HEMATOCRIT 25.1 % (42.0-52.0); HEMOGLOBIN 8.4 g/dL (14.0-18.0)
[2021-08-30] MEDS: HYDRALAZINE HCL 100MG TABLET PO SCH (18:13)
[2021-08-30] MEDS ORDERED: MORPHINE SULFATE 2 MG/ML CPJ (NOT FOR IM USE) IV NR (18:15)
[2021-08-30] MEDS ORDERED: VANCOMYCIN 750MG PMX (XELLIA) 150 ML IV SCH (23:00)
[2021-08-31] VITALS (50 sets, daily range): BP systolic 94–195; BP diastolic 44–124
[2021-08-31] MEDS: DEXT 5%/0.45% NACL 1000ML 1,000 ML IV SCH (00:55)
[2021-08-31] MEDS: IPRATROPIUM/ALBUTEROL 0.5-3(2.5)MG/3ML NEB HHN SCH ×4 (01:13→21:16)
[2021-08-31] MEDS: ACETYLCYSTEINE 100MG/ML 10% VIAL 4ML INH SCH ×3 (01:13→22:00)
[2021-08-31] MEDS: MEROPENEM 1,000 MG in SODIUM CHLORIDE 0.9% 100 ML IV SCH ×3 (03:11→17:48)
[2021-08-31 05:40] LABS: HEMOGLOBIN. 8.7 g/dL (14.0-18.0); MEAN CORPUSCULAR HEMOGLOBIN 30.4 pg (28.0-32.0); MEAN CORPUSCULAR VOLUME 90.5 fL (80.0-94.0); MEAN PLATELET VOLUME 8.1 fl (7.4-10.4); PLATELET 367 x1000/uL (130-400); RED BLOOD CELL COUNT 2.88 mill/uL (4.7-6.1)
[2021-08-31 05:54] LABS: CHLORIDE 113 mEq/L (98-107)
[2021-08-31] MEDS: INSULIN LISPRO 100 UNITS/ML SUBCUT SCH ×3 (06:00→17:49)
[2021-08-31] MEDS: BLOOD SUGAR DIAGNOSTIC STRIP TEST SCH ×3 (06:00→17:48)
[2021-08-31] MEDS: METOCLOPRAMIDE HCL 10MG/2ML VIAL IV SCH ×3 (06:26→17:48)
[2021-08-31] MEDS: SUCRALFATE 1 G/10 ML UDC PO SCH ×4 (06:26→21:16)
[2021-08-31] MEDS: ACETAMINOPHEN 650MG/20.3ML UDC PO PRN ×2 (06:26→18:58)
[2021-08-31] MEDS: LORAZEPAM 2MG/ML CPJ IV PRN ×3 (06:40→17:16)
[2021-08-31 08:27] LABS: PLATELET ESTIMATE NORMAL
[2021-08-31] MEDS: AMLODIPINE 10MG TABLET PO SCH (08:49)
[2021-08-31] MEDS: PANTOPRAZOLE SODIUM 40 MG/VIAL IV SCH ×2 (08:49→21:16)
[2021-08-31] MEDS: METOPROLOL TARTRATE 25MG TABLET PO SCH ×2 (08:50→21:00)
[2021-08-31 08:52] LABS: BG BASE EXCESS -7.9 mmol/L (-2.0-2.0); BG CARBOXYHEMOGLOBIN 0.3 % (0.5-1.5); BG DEOXYHEMOGLOBIN 1.2 % (0.0-5.0); BG FRACTION INSPIRED OXYGEN 35; BG HCO3 ACT 14.8 mmol/L (22.0-26.0); BG METHEMOGLOBIN 0.3 % (0.0-1.5); BG OXYGEN SATURATION 98.8 % (92.0-98.5); BG OXYHEMOGLOBIN 98.2 % (94.0-97.0); BG PCO2 21.9 mmHg (35.0-45.0); BG PH 7.447 (7.350-7.450); BG PO2 135.8 mmHg (75.0-100.0); BG SAMPLE SITE RIGHT RADIAL; BG TOTAL HEMOGLOBIN 8.9 g/dL (12.0-18.0); BG VENT MODE VENT - AC
[2021-08-31] MEDS: DOCUSATE SODIUM SUGAR FREE 100MG/10ML UDC NG SCH (08:52)
[2021-08-31] MEDS: HYDRALAZINE HCL 100MG TABLET PO SCH ×2 (08:52→17:47)
[2021-08-31 14:56] LABS: BG BASE EXCESS -7.6 mmol/L (-2.0-2.0); BG CARBOXYHEMOGLOBIN 0.3 % (0.5-1.5); BG DEOXYHEMOGLOBIN 1.2 % (0.0-5.0); BG FRACTION INSPIRED OXYGEN 40; BG HCO3 ACT 15.2 mmol/L (22.0-26.0); BG METHEMOGLOBIN 0.5 % (0.0-1.5); BG OXYGEN SATURATION 98.8 % (92.0-98.5); BG PCO2 22.8 mmHg (35.0-45.0); BG PH 7.441 (7.350-7.450); BG PO2 155.9 mmHg (75.0-100.0); BG SAMPLE SITE RIGHT RADIAL; BG TOTAL HEMOGLOBIN 9.3 g/dL (12.0-18.0); BG VENT MODE VENT - CPAP
[2021-09-01] VITALS (44 sets, daily range): BP systolic 91–165; BP diastolic 49–98
[2021-09-01] MEDS: BLOOD SUGAR DIAGNOSTIC STRIP TEST SCH ×5 (00:35→23:44)
[2021-09-01] MEDS: METOCLOPRAMIDE HCL 10MG/2ML VIAL IV SCH ×5 (00:37→23:44)
[2021-09-01] MEDS: IPRATROPIUM/ALBUTEROL 0.5-3(2.5)MG/3ML NEB HHN SCH ×6 (00:45→20:26)
[2021-09-01] MEDS: ACETYLCYSTEINE 100MG/ML 10% VIAL 4ML INH SCH ×3 (00:45→16:40)
[2021-09-01] MEDS: MEROPENEM 1,000 MG in SODIUM CHLORIDE 0.9% 100 ML IV SCH ×3 (02:06→17:36)
[2021-09-01] MEDS: ACETAMINOPHEN 650MG/20.3ML UDC PO PRN ×3 (04:44→20:51)
[2021-09-01 05:53] LABS: HEMATOCRIT. 25.5 % (42.0-52.0); HEMOGLOBIN. 8.8 g/dL (14.0-18.0); MEAN CORPUSCULAR HEMOGLOBIN 31.4 pg (28.0-32.0); MEAN CORPUSCULAR VOLUME 90.9 fL (80.0-94.0); MEAN PLATELET VOLUME 8.1 fl (7.4-10.4); PLATELET 430 x1000/uL (130-400); RED BLOOD CELL COUNT 2.81 mill/uL (4.7-6.1); RED CELL DISTRIBUTION WIDTH 15.7 % (11.6-14.6)
[2021-09-01] MEDS: INSULIN LISPRO 100 UNITS/ML SUBCUT SCH ×5 (06:00→23:44)
[2021-09-01] MEDS: SUCRALFATE 1 G/10 ML UDC PO SCH ×4 (06:05→20:50)
[2021-09-01 06:20] LABS: CHLORIDE 112 mEq/L (98-107)
[2021-09-01] MEDS: PANTOPRAZOLE SODIUM 40 MG/VIAL IV SCH ×2 (08:26→20:50)
[2021-09-01] MEDS: DOCUSATE SODIUM SUGAR FREE 100MG/10ML UDC NG SCH (08:26)
[2021-09-01] MEDS: HYDRALAZINE HCL 100MG TABLET PO SCH ×2 (08:27→17:00)
[2021-09-01] MEDS: METOPROLOL TARTRATE 25MG TABLET PO SCH ×2 (08:27→20:50)
[2021-09-01] MEDS: AMLODIPINE 10MG TABLET PO SCH (08:27)
[2021-09-01 13:09] LABS: PLATELET ESTIMATE INCREASED
[2021-09-01] MEDS: DEXT 5%/0.45% NACL 1000ML 1,000 ML IV SCH (14:36)
[2021-09-01] MEDS ORDERED: TRAZ-251 MT (15:31)
[2021-09-01] MEDS ORDERED: GLIP10TA10 MT (15:31)
[2021-09-01] MEDS ORDERED: DABI150C MT (15:31)
[2021-09-01] MEDS ORDERED: ATOR-2 MT (15:31)
[2021-09-01] MEDS ORDERED: POTA-9 MT (15:31)
[2021-09-01] MEDS ORDERED: COR6 MT (15:31)
[2021-09-01] MEDS ORDERED: TERA5CAP4 MT (15:31)
[2021-09-01] MEDS ORDERED: DONE10TA36 MT (15:31)
[2021-09-01] MEDS ORDERED: SIMV-46 MT (15:45)
[2021-09-01] MEDS ORDERED: LISI40TA13 MT (15:45)
[2021-09-01] MEDS ORDERED: ATEN100T MT (15:45)
[2021-09-01] MEDS ORDERED: LORA2ORA5 PO (15:45)
[2021-09-01] MEDS ORDERED: SILD20TA PO (15:45)
[2021-09-02] VITALS (46 sets, daily range): BP systolic 104–171; BP diastolic 46–109
[2021-09-02] MEDS: ACETYLCYSTEINE 100MG/ML 10% VIAL 4ML INH SCH ×3 (00:33→16:45)
[2021-09-02] MEDS: IPRATROPIUM/ALBUTEROL 0.5-3(2.5)MG/3ML NEB HHN SCH ×4 (00:34→20:59)
[2021-09-02] MEDS: ACETAMINOPHEN 650MG/20.3ML UDC PO PRN ×2 (00:47→02:52)
[2021-09-02] MEDS: MEROPENEM 1,000 MG in SODIUM CHLORIDE 0.9% 100 ML IV SCH (02:35)
[2021-09-02] MEDS: SUCRALFATE 1 G/10 ML UDC PO SCH ×4 (05:20→20:57)
[2021-09-02] MEDS: BLOOD SUGAR DIAGNOSTIC STRIP TEST SCH ×4 (05:21→23:38)
[2021-09-02] MEDS: METOCLOPRAMIDE HCL 10MG/2ML VIAL IV SCH ×3 (05:23→23:39)
[2021-09-02] MEDS: INSULIN LISPRO 100 UNITS/ML SUBCUT SCH ×4 (06:00→23:39)
[2021-09-02 06:05] LABS: BASOPHILS % 0.9 % (0.0-2.0); EOSINOPHILS % 3.5 % (0.0-5.0); HEMATOCRIT. 24.2 % (42.0-52.0); HEMOGLOBIN. 8.4 g/dL (14.0-18.0); LYMPHOCYTES % 7.3 % (20.0-50.0); MEAN CORPUSCULAR HEMOGLOBIN 31.4 pg (28.0-32.0); MEAN CORPUSCULAR VOLUME 90.2 fL (80.0-94.0); MONOCYTES % 10.4 % (2.0-8.0); NEUTROPHILS % 77.9 % (40.0-76.0); PLATELET 428 x1000/uL (130-400); RED BLOOD CELL COUNT 2.68 mill/uL (4.7-6.1); RED CELL DISTRIBUTION WIDTH 15.2 % (11.6-14.6)
[2021-09-02 06:13] LABS: CHLORIDE 113 mEq/L (98-107)
[2021-09-02 06:33] LABS: INR 1.1; PROTHROMBIN TIME 12.1 sec (9.6-11.0)
[2021-09-02] MEDS: DOCUSATE SODIUM SUGAR FREE 100MG/10ML UDC NG SCH (08:14)
[2021-09-02] MEDS: AMLODIPINE 10MG TABLET PO SCH (08:14)
[2021-09-02] MEDS: HYDRALAZINE HCL 100MG TABLET PO SCH ×2 (08:14→17:00)
[2021-09-02] MEDS: METOPROLOL TARTRATE 25MG TABLET PO SCH (08:14)
[2021-09-02] MEDS: PANTOPRAZOLE SODIUM 40 MG/VIAL IV SCH ×2 (08:20→20:57)
[2021-09-02] MEDS ORDERED: POTASSIUM CHLORIDE INJ 40 MEQ in DEXT 5% WATER 250 ML IV SCH (10:00)
[2021-09-02 10:45] LABS: BG BASE EXCESS -8.3 mmol/L (-2.0-2.0); BG CARBOXYHEMOGLOBIN 0.3 % (0.5-1.5); BG FRACTION INSPIRED OXYGEN 40; BG METHEMOGLOBIN 0.3 % (0.0-1.5); BG OXYHEMOGLOBIN 98.4 % (94.0-97.0); BG PCO2 23.3 mmHg (35.0-45.0); BG PH 7.428 (7.350-7.450); BG SAMPLE SITE RIGHT RADIAL; BG TOTAL HEMOGLOBIN 7.5 g/dL (12.0-18.0); BG VENT MODE VENT - AC
[2021-09-02] MEDS ORDERED: LIDOCAINE HCL/EPINEPHRINE 1%-EPI 1:100,000 50 ML VIAL INFIL ONE (11:40)
[2021-09-02] MEDS: MORPHINE SULFATE 2 MG/ML CPJ (NOT FOR IM USE) IV PRN (14:15)
[2021-09-02] MEDS: DEXT 5%/0.45% NACL 1000ML 1,000 ML IV SCH (14:22)
[2021-09-02] MEDS ORDERED: NALOXONE HCL 0.4MG/ML VIAL IV PRN (15:15)
[2021-09-02] MEDS ORDERED: HYDRALAZINE 20MG/ML VIAL IV PRN (15:15)
[2021-09-02] MEDS: FOLIC ACID 1MG TABLET PO SCH (15:24)
[2021-09-02] MEDS: THIAMINE HCL 100MG TABLET PO SCH (15:26)
[2021-09-02] MEDS: METOPROLOL TARTRATE 50MG TABLET PO SCH (20:57)
[2021-09-03] VITALS (36 sets, daily range): BP systolic 83–158; BP diastolic 49–113
[2021-09-03] MEDS: ACETYLCYSTEINE 100MG/ML 10% VIAL 4ML INH SCH ×3 (00:35→16:04)
[2021-09-03] MEDS: IPRATROPIUM/ALBUTEROL 0.5-3(2.5)MG/3ML NEB HHN SCH ×6 (00:36→20:28)
[2021-09-03] MEDS: BLOOD SUGAR DIAGNOSTIC STRIP TEST SCH ×3 (05:38→18:19)
[2021-09-03] MEDS: SUCRALFATE 1 G/10 ML UDC PO SCH ×4 (05:43→21:43)
[2021-09-03] MEDS: METOCLOPRAMIDE HCL 10MG/2ML VIAL IV SCH ×4 (05:43→23:59)
[2021-09-03 05:45] LABS: BASOPHILS % 0.2 % (0.0-2.0); EOSINOPHILS % 0.1 % (0.0-5.0); HEMATOCRIT. 23.4 % (42.0-52.0); HEMOGLOBIN. 8.1 g/dL (14.0-18.0); LYMPHOCYTES % 10.2 % (20.0-50.0); MEAN CORPUSCULAR HEMOGLOBIN 31.4 pg (28.0-32.0); MEAN CORPUSCULAR VOLUME 90.3 fL (80.0-94.0); MEAN PLATELET VOLUME 7.8 fl (7.4-10.4); MONOCYTES % 6.9 % (2.0-8.0); NEUTROPHILS % 82.6 % (40.0-76.0); PLATELET 458 x1000/uL (130-400); RED BLOOD CELL COUNT 2.59 mill/uL (4.7-6.1); RED CELL DISTRIBUTION WIDTH 15.2 % (11.6-14.6)
[2021-09-03 06:00] LABS: CHLORIDE 114 mEq/L (98-107)
[2021-09-03] MEDS: INSULIN LISPRO 100 UNITS/ML SUBCUT SCH ×3 (06:00→18:00)
[2021-09-03 06:03] LABS: INR 1.1; PROTHROMBIN TIME 12.1 sec (9.6-11.0)
[2021-09-03] MEDS: DOCUSATE SODIUM SUGAR FREE 100MG/10ML UDC NG SCH (08:09)
[2021-09-03] MEDS: THIAMINE HCL 100MG TABLET PO SCH (08:09)
[2021-09-03] MEDS: PANTOPRAZOLE SODIUM 40 MG/VIAL IV SCH ×2 (08:09→21:43)
[2021-09-03] MEDS: METOPROLOL TARTRATE 50MG TABLET PO SCH ×2 (08:09→21:44)
[2021-09-03] MEDS: AMLODIPINE 10MG TABLET PO SCH (08:10)
[2021-09-03] MEDS: HYDRALAZINE HCL 100MG TABLET PO SCH ×2 (08:10→16:52)
[2021-09-03] MEDS: FOLIC ACID 1MG TABLET PO SCH (08:11)
[2021-09-03] MEDS: CEFAZOLIN 2,000 MG in DEXT 5% WATER 100 ML IV SCH ×2 (12:18→22:44)
[2021-09-03] MEDS: DEXT 5%/0.45% NACL 1000ML 1,000 ML IV SCH (12:19)
[2021-09-03] MEDS: ACETAMINOPHEN 650MG/20.3ML UDC PO PRN (17:22)
[2021-09-04] VITALS (11 sets, daily range): BP systolic 119–148; BP diastolic 49–80
[2021-09-04] MEDS: MORPHINE SULFATE 2 MG/ML CPJ (NOT FOR IM USE) IV PRN ×2 (00:03→23:03)
[2021-09-04] MEDS: BLOOD SUGAR DIAGNOSTIC STRIP TEST SCH ×5 (00:06→23:50)
[2021-09-04] MEDS: IPRATROPIUM/ALBUTEROL 0.5-3(2.5)MG/3ML NEB HHN SCH ×6 (00:25→20:28)
[2021-09-04] MEDS: ACETYLCYSTEINE 100MG/ML 10% VIAL 4ML INH SCH ×3 (00:25→20:27)
[2021-09-04] MEDS: INSULIN LISPRO 100 UNITS/ML SUBCUT SCH ×5 (06:00→23:49)
[2021-09-04] MEDS: METOCLOPRAMIDE HCL 10MG/2ML VIAL IV SCH ×4 (06:06→23:50)
[2021-09-04 06:07] LABS: BASOPHILS % 0.4 % (0.0-2.0); EOSINOPHILS % 2.3 % (0.0-5.0); HEMATOCRIT. 23.5 % (42.0-52.0); HEMOGLOBIN. 8.3 g/dL (14.0-18.0); INR 1.2; LYMPHOCYTES % 11.7 % (20.0-50.0); MEAN PLATELET VOLUME 7.8 fl (7.4-10.4); MONOCYTES % 8.8 % (2.0-8.0); NEUTROPHILS % 76.8 % (40.0-76.0); PLATELET 478 x1000/uL (130-400); PROTHROMBIN TIME 12.4 sec (9.6-11.0); RED BLOOD CELL COUNT 2.67 mill/uL (4.7-6.1); RED CELL DISTRIBUTION WIDTH 15.1 % (11.6-14.6)
[2021-09-04] MEDS: CEFAZOLIN 2,000 MG in DEXT 5% WATER 100 ML IV SCH ×3 (06:07→23:02)
[2021-09-04 06:19] LABS: CHLORIDE 114 mEq/L (98-107)
[2021-09-04] MEDS: PANTOPRAZOLE SODIUM 40 MG/VIAL IV SCH ×2 (08:06→22:02)
[2021-09-04] MEDS: AMLODIPINE 10MG TABLET PO SCH (08:06)
[2021-09-04] MEDS: DOCUSATE SODIUM SUGAR FREE 100MG/10ML UDC NG SCH (08:06)
[2021-09-04] MEDS: METOPROLOL TARTRATE 50MG TABLET PO SCH ×2 (08:06→22:02)
[2021-09-04] MEDS: HYDRALAZINE HCL 100MG TABLET PO SCH ×2 (08:06→17:13)
[2021-09-04] MEDS: SUCRALFATE 1 G/10 ML UDC PO SCH ×4 (08:06→22:01)
[2021-09-04] MEDS: THIAMINE HCL 100MG TABLET PO SCH (08:06)
[2021-09-04] MEDS: FOLIC ACID 1MG TABLET PO SCH (08:07)
[2021-09-04] MEDS ORDERED: POTASSIUM CHLORIDE 20MEQ/PACKET GT NR (08:15)
[2021-09-04] MEDS: LORAZEPAM 2MG/ML CPJ IV PRN ×2 (13:41→22:03)
[2021-09-04] MEDS: DEXT 5%/0.45% NACL 1000ML 1,000 ML IV SCH (13:48)
[2021-09-04] MEDS: ACETAMINOPHEN 650MG/20.3ML UDC PO PRN ×2 (14:19→22:03)
[2021-09-04] MEDS ORDERED: LACTULOSE 20G/30ML UDC PO NR (14:30)
[2021-09-05] VITALS (12 sets, daily range): BP systolic 119–150; BP diastolic 43–88
[2021-09-05] MEDS: IPRATROPIUM/ALBUTEROL 0.5-3(2.5)MG/3ML NEB HHN SCH ×6 (00:26→20:31)
[2021-09-05] MEDS: INSULIN LISPRO 100 UNITS/ML SUBCUT SCH ×4 (06:00→23:13)
[2021-09-05] MEDS: CEFAZOLIN 2,000 MG in DEXT 5% WATER 100 ML IV SCH ×3 (06:12→23:12)
[2021-09-05] MEDS: BLOOD SUGAR DIAGNOSTIC STRIP TEST SCH ×4 (06:12→23:04)
[2021-09-05] MEDS: METOCLOPRAMIDE HCL 10MG/2ML VIAL IV SCH ×4 (06:12→23:12)
[2021-09-05 07:57] LABS: BASOPHILS % 0.5 % (0.0-2.0); EOSINOPHILS % 1.7 % (0.0-5.0); HEMATOCRIT. 23.6 % (42.0-52.0); HEMOGLOBIN. 8.1 g/dL (14.0-18.0); LYMPHOCYTES % 11.6 % (20.0-50.0); MEAN CORPUSCULAR HEMOGLOBIN 31.1 pg (28.0-32.0); MEAN CORPUSCULAR VOLUME 90.7 fL (80.0-94.0); MEAN PLATELET VOLUME 7.6 fl (7.4-10.4); MONOCYTES % 8.6 % (2.0-8.0); NEUTROPHILS % 77.6 % (40.0-76.0); PLATELET 421 x1000/uL (130-400); RED CELL DISTRIBUTION WIDTH 15.5 % (11.6-14.6)
[2021-09-05 08:25] LABS: CHLORIDE 113 mEq/L (98-107)
[2021-09-05] MEDS: THIAMINE HCL 100MG TABLET PO SCH (08:41)
[2021-09-05] MEDS: SUCRALFATE 1 G/10 ML UDC PO SCH ×4 (08:41→21:34)
[2021-09-05] MEDS: FOLIC ACID 1MG TABLET PO SCH (08:41)
[2021-09-05] MEDS: PANTOPRAZOLE SODIUM 40 MG/VIAL IV SCH ×2 (08:41→21:34)
[2021-09-05] MEDS: DOCUSATE SODIUM SUGAR FREE 100MG/10ML UDC NG SCH (08:41)
[2021-09-05] MEDS: HYDRALAZINE HCL 100MG TABLET PO SCH ×2 (08:42→17:49)
[2021-09-05] MEDS: AMLODIPINE 10MG TABLET PO SCH (08:42)
[2021-09-05] MEDS: METOPROLOL TARTRATE 50MG TABLET PO SCH ×2 (08:42→21:35)
[2021-09-05] MEDS: DEXT 5%/0.45% NACL 1000ML 1,000 ML IV SCH (12:34)
[2021-09-05] MEDS: ACETAMINOPHEN 650MG/20.3ML UDC PO PRN ×2 (13:08→20:04)
[2021-09-05] MEDS: LORAZEPAM 2MG/ML CPJ IV PRN ×2 (15:16→21:35)
[2021-09-05] MEDS: AZITHROMYCIN 500 MG in DEXT 5% WATER 250 ML IV SCH (21:33)
[2021-09-05] MEDS: MORPHINE SULFATE 2 MG/ML CPJ (NOT FOR IM USE) IV PRN (21:36)
[2021-09-06] VITALS (12 sets, daily range): BP systolic 100–149; BP diastolic 43–107
[2021-09-06] MEDS: IPRATROPIUM/ALBUTEROL 0.5-3(2.5)MG/3ML NEB HHN SCH ×6 (00:31→19:58)
[2021-09-06] MEDS: ACETAMINOPHEN 650MG/20.3ML UDC PO PRN ×3 (04:05→22:24)
[2021-09-06] MEDS: INSULIN LISPRO 100 UNITS/ML SUBCUT SCH ×4 (05:21→23:18)
[2021-09-06] MEDS: BLOOD SUGAR DIAGNOSTIC STRIP TEST SCH ×4 (05:21→23:13)
[2021-09-06] MEDS: METOCLOPRAMIDE HCL 10MG/2ML VIAL IV SCH ×4 (06:06→23:26)
[2021-09-06] MEDS: CEFAZOLIN 2,000 MG in DEXT 5% WATER 100 ML IV SCH ×3 (06:06→23:25)
[2021-09-06] MEDS: LORAZEPAM 2MG/ML CPJ IV PRN ×2 (06:07→21:00)
[2021-09-06] MEDS: MORPHINE SULFATE 2 MG/ML CPJ (NOT FOR IM USE) IV PRN ×2 (06:07→12:45)
[2021-09-06] MEDS: SUCRALFATE 1 G/10 ML UDC PO SCH ×4 (06:37→21:00)
[2021-09-06 06:49] LABS: HEMATOCRIT. 21.6 % (42.0-52.0); HEMOGLOBIN. 7.3 g/dL (14.0-18.0); MEAN CORPUSCULAR VOLUME 89.4 fL (80.0-94.0); PLATELET 372 x1000/uL (130-400); RED BLOOD CELL COUNT 2.42 mill/uL (4.7-6.1); RED CELL DISTRIBUTION WIDTH 15.1 % (11.6-14.6)
[2021-09-06 07:03] LABS: CHLORIDE 111 mEq/L (98-107)
[2021-09-06] MEDS: THIAMINE HCL 100MG TABLET PO SCH (08:34)
[2021-09-06] MEDS: FOLIC ACID 1MG TABLET PO SCH (08:34)
[2021-09-06] MEDS: METOPROLOL TARTRATE 50MG TABLET PO SCH ×2 (08:34→21:00)
[2021-09-06] MEDS: HYDRALAZINE HCL 100MG TABLET PO SCH ×2 (08:34→17:06)
[2021-09-06] MEDS: PANTOPRAZOLE SODIUM 40 MG/VIAL IV SCH ×2 (08:34→21:00)
[2021-09-06] MEDS: DOCUSATE SODIUM SUGAR FREE 100MG/10ML UDC NG SCH (08:35)
[2021-09-06] MEDS: AMLODIPINE 10MG TABLET PO SCH (08:35)
[2021-09-06] MEDS ORDERED: POTASSIUM CHLORIDE 20MEQ/PACKET PO NR (11:00)
[2021-09-06 14:37] LABS: PLATELET ESTIMATE NORMAL
[2021-09-06] MEDS: DEXT 5%/0.45% NACL 1000ML 1,000 ML IV SCH (17:58)
[2021-09-06] MEDS: AZITHROMYCIN 500 MG in DEXT 5% WATER 250 ML IV SCH (20:58)
[2021-09-07] VITALS (12 sets, daily range): BP systolic 106–158; BP diastolic 52–91
[2021-09-07] MEDS: IPRATROPIUM/ALBUTEROL 0.5-3(2.5)MG/3ML NEB HHN SCH ×6 (00:04→20:00)
[2021-09-07 01:49] LABS: HEMATOCRIT. 25.2 % (42.0-52.0); HEMOGLOBIN. 8.5 g/dL (14.0-18.0); MEAN CORPUSCULAR HEMOGLOBIN 29.9 pg (28.0-32.0); MEAN CORPUSCULAR VOLUME 89.1 fL (80.0-94.0); MEAN PLATELET VOLUME 8.1 fl (7.4-10.4); PLATELET 378 x1000/uL (130-400); RED BLOOD CELL COUNT 2.83 mill/uL (4.7-6.1); RED CELL DISTRIBUTION WIDTH 15.5 % (11.6-14.6)
[2021-09-07 01:52] LABS: INR 1.2
[2021-09-07 02:02] LABS: CHLORIDE 109 mEq/L (98-107)
[2021-09-07 02:11] LABS: PLATELET ESTIMATE NORMAL
[2021-09-07] MEDS: INSULIN LISPRO 100 UNITS/ML SUBCUT SCH ×4 (06:00→23:44)
[2021-09-07] MEDS: BLOOD SUGAR DIAGNOSTIC STRIP TEST SCH ×4 (06:24→23:44)
[2021-09-07] MEDS: METOCLOPRAMIDE HCL 10MG/2ML VIAL IV SCH ×4 (06:25→23:37)
[2021-09-07] MEDS: CEFAZOLIN 2,000 MG in DEXT 5% WATER 100 ML IV SCH ×2 (06:25→13:57)
[2021-09-07] MEDS: LORAZEPAM 2MG/ML CPJ IV PRN ×2 (06:25→13:04)
[2021-09-07] MEDS: SUCRALFATE 1 G/10 ML UDC PO SCH ×4 (07:30→20:25)
[2021-09-07] MEDS: DOCUSATE SODIUM SUGAR FREE 100MG/10ML UDC NG SCH (08:22)
[2021-09-07] MEDS: FOLIC ACID 1MG TABLET PO SCH (08:22)
[2021-09-07] MEDS: HYDRALAZINE HCL 100MG TABLET PO SCH ×2 (08:22→17:53)
[2021-09-07] MEDS: METOPROLOL TARTRATE 50MG TABLET PO SCH ×2 (08:22→20:26)
[2021-09-07] MEDS: THIAMINE HCL 100MG TABLET PO SCH (08:23)
[2021-09-07] MEDS: AMLODIPINE 10MG TABLET PO SCH (08:23)
[2021-09-07] MEDS: PANTOPRAZOLE SODIUM 40 MG/VIAL IV SCH ×2 (09:26→20:25)
[2021-09-07] MEDS: ACETAMINOPHEN 650MG/20.3ML UDC PO PRN (11:44)
[2021-09-07] MEDS: DEXT 5%/0.45% NACL 1000ML 1,000 ML IV SCH (13:05)
[2021-09-07] MEDS: CEFEPIME 2,000 MG in DEXT 5% WATER 100 ML IV SCH (17:52)
[2021-09-07] MEDS: AZITHROMYCIN 500 MG in DEXT 5% WATER 250 ML IV SCH (20:25)
[2021-09-08] VITALS (13 sets, daily range): BP systolic 116–169; BP diastolic 54–86
[2021-09-08] MEDS: IPRATROPIUM/ALBUTEROL 0.5-3(2.5)MG/3ML NEB HHN SCH ×6 (04:38→20:04)
[2021-09-08] MEDS: BLOOD SUGAR DIAGNOSTIC STRIP TEST SCH ×3 (05:45→18:00)
[2021-09-08] MEDS: INSULIN LISPRO 100 UNITS/ML SUBCUT SCH ×3 (05:45→17:31)
[2021-09-08] MEDS: METOCLOPRAMIDE HCL 10MG/2ML VIAL IV SCH ×3 (05:50→17:31)
[2021-09-08] MEDS: CEFEPIME 2,000 MG in DEXT 5% WATER 100 ML IV SCH ×2 (06:01→17:31)
[2021-09-08] MEDS: SUCRALFATE 1 G/10 ML UDC PO SCH ×4 (06:03→20:56)
[2021-09-08] MEDS: LORAZEPAM 2MG/ML CPJ IV PRN (06:06)
[2021-09-08 06:49] LABS: HEMATOCRIT. 21.9 % (42.0-52.0); HEMOGLOBIN. 7.5 g/dL (14.0-18.0); MEAN CORPUSCULAR HEMOGLOBIN 30.5 pg (28.0-32.0); MEAN CORPUSCULAR VOLUME 89.5 fL (80.0-94.0); MEAN PLATELET VOLUME 8.4 fl (7.4-10.4); PLATELET 304 x1000/uL (130-400); RED BLOOD CELL COUNT 2.45 mill/uL (4.7-6.1); RED CELL DISTRIBUTION WIDTH 15.2 % (11.6-14.6)
[2021-09-08 07:05] LABS: CHLORIDE 107 mEq/L (98-107)
[2021-09-08] MEDS: DOCUSATE SODIUM SUGAR FREE 100MG/10ML UDC NG SCH (08:14)
[2021-09-08] MEDS: AMLODIPINE 10MG TABLET PO SCH (08:15)
[2021-09-08] MEDS: PANTOPRAZOLE SODIUM 40 MG/VIAL IV SCH ×2 (08:15→20:56)
[2021-09-08] MEDS: ACETAMINOPHEN 650MG/20.3ML UDC PO PRN ×2 (08:15→20:58)
[2021-09-08] MEDS: HYDRALAZINE HCL 100MG TABLET PO SCH ×2 (08:15→17:31)
[2021-09-08] MEDS: THIAMINE HCL 100MG TABLET PO SCH (08:15)
[2021-09-08] MEDS: FOLIC ACID 1MG TABLET PO SCH (08:16)
[2021-09-08] MEDS: METOPROLOL TARTRATE 50MG TABLET PO SCH ×2 (08:17→21:03)
[2021-09-08 10:00] LABS: PLATELET ESTIMATE NORMAL
[2021-09-08] MEDS: DEXT 5%/0.45% NACL 1000ML 1,000 ML IV SCH (13:15)
[2021-09-08] MEDS: AZITHROMYCIN 500 MG in DEXT 5% WATER 250 ML IV SCH (20:56)
[2021-09-09] VITALS (16 sets, daily range): BP systolic 97–127; BP diastolic 47–65
[2021-09-09] MEDS: METOCLOPRAMIDE HCL 10MG/2ML VIAL IV SCH ×4 (00:15→23:33)
[2021-09-09] MEDS: BLOOD SUGAR DIAGNOSTIC STRIP TEST SCH ×4 (00:20→18:00)
[2021-09-09] MEDS: IPRATROPIUM/ALBUTEROL 0.5-3(2.5)MG/3ML NEB HHN SCH ×6 (00:21→20:47)
[2021-09-09] MEDS: INSULIN LISPRO 100 UNITS/ML SUBCUT SCH ×4 (06:00→18:00)
[2021-09-09 07:04] LABS: HEMATOCRIT. 22.3 % (42.0-52.0); HEMOGLOBIN. 7.3 g/dL (14.0-18.0); MEAN CORPUSCULAR VOLUME 91.7 fL (80.0-94.0); MEAN PLATELET VOLUME 8.8 fl (7.4-10.4); PLATELET 298 x1000/uL (130-400); RED BLOOD CELL COUNT 2.43 mill/uL (4.7-6.1); RED CELL DISTRIBUTION WIDTH 15.5 % (11.6-14.6)
[2021-09-09 07:33] LABS: CHLORIDE 107 mEq/L (98-107)
[2021-09-09] MEDS: METOPROLOL TARTRATE 50MG TABLET PO SCH ×2 (10:02→23:32)
[2021-09-09] MEDS: DOCUSATE SODIUM SUGAR FREE 100MG/10ML UDC NG SCH (10:02)
[2021-09-09] MEDS: PANTOPRAZOLE SODIUM 40 MG/VIAL IV SCH ×2 (10:02→23:32)
[2021-09-09] MEDS: SUCRALFATE 1 G/10 ML UDC PO SCH ×4 (10:02→23:33)
[2021-09-09] MEDS: AMLODIPINE 10MG TABLET PO SCH (10:03)
[2021-09-09] MEDS: HYDRALAZINE HCL 100MG TABLET PO SCH (10:03)
[2021-09-09 11:01] LABS: PLATELET ESTIMATE NORMAL
[2021-09-09] MEDS ORDERED: POTASSIUM CHLORIDE 20MEQ TABLET SR PO NR (12:00)
[2021-09-09] MEDS: LEVOFLOXACIN 750MG PREMIX 150 ML IV SCH (13:28)
[2021-09-09] MEDS: DEXT 5%/0.45% NACL 1000ML 1,000 ML IV SCH (13:29)
[2021-09-09 16:43] LABS: BG BASE EXCESS -5.3 mmol/L (-2.0-2.0); BG CARBOXYHEMOGLOBIN 0.3 % (0.5-1.5); BG DEOXYHEMOGLOBIN 0.7 % (0.0-5.0); BG FRACTION INSPIRED OXYGEN 40; BG HCO3 ACT 17.1 mmol/L (22.0-26.0); BG METHEMOGLOBIN 0.5 % (0.0-1.5); BG OXYGEN SATURATION 99.3 % (92.0-98.5); BG OXYHEMOGLOBIN 98.5 % (94.0-97.0); BG PCO2 23.1 mmHg (35.0-45.0); BG PH 7.487 (7.350-7.450); BG PO2 158.4 mmHg (75.0-100.0); BG SAMPLE SITE CPB CIRCUIT; BG TOTAL HEMOGLOBIN 8.2 g/dL (12.0-18.0); BG VENT MODE VENT - SIMV
[2021-09-09] MEDS: ACETAMINOPHEN 650MG/20.3ML UDC PO PRN (19:06)
[2021-09-09] MEDS: CEFEPIME 2,000 MG in DEXT 5% WATER 100 ML IV SCH ×2 (19:58→21:00)
[2021-09-09] MEDS ORDERED: IPRATROPIUM/ALBUTEROL 0.5-3(2.5)MG/3ML NEB ONE ×2 (20:27→23:53)
[2021-09-09] MEDS ORDERED: AZITHROMYCIN 500 MG in DEXT 5% WATER 250 ML IV SCH (22:00)
[2021-09-10] VITALS (13 sets, daily range): BP systolic 108–152; BP diastolic 50–71
[2021-09-10] MEDS: IPRATROPIUM/ALBUTEROL 0.5-3(2.5)MG/3ML NEB HHN SCH ×6 (00:08→19:51)
[2021-09-10] MEDS ORDERED: IPRATROPIUM/ALBUTEROL 0.5-3(2.5)MG/3ML NEB ONE (03:54)
[2021-09-10] MEDS: METOCLOPRAMIDE HCL 10MG/2ML VIAL IV SCH ×5 (05:17→23:44)
[2021-09-10] MEDS: BLOOD SUGAR DIAGNOSTIC STRIP TEST SCH ×5 (05:17→23:57)
[2021-09-10] MEDS: INSULIN LISPRO 100 UNITS/ML SUBCUT SCH ×4 (05:18→17:02)
[2021-09-10] MEDS: ACETAMINOPHEN 650MG/20.3ML UDC PO PRN ×2 (06:47→13:52)
[2021-09-10 07:07] LABS: HEMOGLOBIN. 7.7 g/dL (14.0-18.0); MEAN CORPUSCULAR HEMOGLOBIN 30.2 pg (28.0-32.0); MEAN CORPUSCULAR VOLUME 89.8 fL (80.0-94.0); MEAN PLATELET VOLUME 8.5 fl (7.4-10.4); PLATELET 267 x1000/uL (130-400); RED BLOOD CELL COUNT 2.56 mill/uL (4.7-6.1); RED CELL DISTRIBUTION WIDTH 15.4 % (11.6-14.6)
[2021-09-10 07:21] LABS: CHLORIDE 108 mEq/L (98-107)
[2021-09-10] MEDS: METOPROLOL TARTRATE 50MG TABLET PO SCH ×2 (09:00→22:21)
[2021-09-10] MEDS: AMLODIPINE 10MG TABLET PO SCH (09:00)
[2021-09-10] MEDS: DOCUSATE SODIUM SUGAR FREE 100MG/10ML UDC NG SCH (09:07)
[2021-09-10] MEDS: SUCRALFATE 1 G/10 ML UDC PO SCH ×4 (09:07→22:20)
[2021-09-10] MEDS: PANTOPRAZOLE SODIUM 40 MG/VIAL IV SCH ×2 (09:08→22:20)
[2021-09-10] MEDS: CEFEPIME 2,000 MG in DEXT 5% WATER 100 ML IV SCH (09:08)
[2021-09-10 12:27] LABS: PLATELET ESTIMATE NORMAL
[2021-09-10] MEDS ORDERED: POTASSIUM CHLORIDE 20MEQ TABLET SR PO NR (12:30)
[2021-09-10] MEDS: DEXT 5%/0.45% NACL 1000ML 1,000 ML IV SCH (13:10)
[2021-09-10] MEDS: LEVOFLOXACIN 750MG PREMIX 150 ML IV SCH (13:10)
[2021-09-10 18:59] LABS: HEMATOCRIT 21.4 % (42.0-52.0); HEMOGLOBIN 7.2 g/dL (14.0-18.0)
[2021-09-11] VITALS (16 sets, daily range): BP systolic 130–158; BP diastolic 57–90
[2021-09-11] MEDS: INSULIN LISPRO 100 UNITS/ML SUBCUT SCH ×4 (00:13→17:05)
[2021-09-11] MEDS: METOCLOPRAMIDE HCL 10MG/2ML VIAL IV SCH ×3 (06:52→17:05)
[2021-09-11] MEDS: BLOOD SUGAR DIAGNOSTIC STRIP TEST SCH ×3 (06:53→17:05)
[2021-09-11 07:04] LABS: HEMATOCRIT. 27.6 % (42.0-52.0); HEMOGLOBIN. 9.3 g/dL (14.0-18.0); MEAN CORPUSCULAR HEMOGLOBIN 30.3 pg (28.0-32.0); MEAN PLATELET VOLUME 8.6 fl (7.4-10.4); PLATELET 265 x1000/uL (130-400); RED BLOOD CELL COUNT 3.07 mill/uL (4.7-6.1)
[2021-09-11 07:13] LABS: INR 1.3; PROTHROMBIN TIME 13.6 sec (9.6-11.0)
[2021-09-11] MEDS: IPRATROPIUM/ALBUTEROL 0.5-3(2.5)MG/3ML NEB HHN SCH ×4 (07:23→20:59)
[2021-09-11 07:45] LABS: CHLORIDE 108 mEq/L (98-107)
[2021-09-11] MEDS: DOCUSATE SODIUM SUGAR FREE 100MG/10ML UDC NG SCH (08:02)
[2021-09-11] MEDS: SUCRALFATE 1 G/10 ML UDC PO SCH ×4 (08:02→22:15)
[2021-09-11] MEDS: AMLODIPINE 10MG TABLET PO SCH (08:02)
[2021-09-11] MEDS: PANTOPRAZOLE SODIUM 40 MG/VIAL IV SCH ×2 (08:02→22:15)
[2021-09-11] MEDS: METOPROLOL TARTRATE 50MG TABLET PO SCH ×2 (08:03→22:15)
[2021-09-11 08:35] LABS: BG BASE EXCESS -5.2 mmol/L (-2.0-2.0); BG CARBOXYHEMOGLOBIN 0.1 % (0.5-1.5); BG DEOXYHEMOGLOBIN 0.9 % (0.0-5.0); BG FRACTION INSPIRED OXYGEN 40; BG HCO3 ACT 16.7 mmol/L (22.0-26.0); BG METHEMOGLOBIN 0.5 % (0.0-1.5); BG OXYGEN SATURATION 99.1 % (92.0-98.5); BG OXYHEMOGLOBIN 98.5 % (94.0-97.0); BG PH 7.498 (7.350-7.450); BG PO2 175.1 mmHg (75.0-100.0); BG SAMPLE SITE RIGHT RADIAL; BG TOTAL HEMOGLOBIN 9.4 g/dL (12.0-18.0); BG VENT MODE VENT - SIMV
[2021-09-11] MEDS: ACETAMINOPHEN 650MG/20.3ML UDC PO PRN ×2 (09:47→17:05)
[2021-09-11] MEDS ORDERED: MIDAZOLAM HCL 5 MG/5 ML VIAL ONE (11:07)
[2021-09-11] MEDS ORDERED: FENTANYL CITRATE/PF 50MCG/ML 2ML VIAL ONE (11:08)
[2021-09-11 11:10] LABS: PLATELET ESTIMATE NORMAL
[2021-09-11] MEDS: LEVOFLOXACIN 750MG PREMIX 150 ML IV SCH (13:48)
[2021-09-11] MEDS: DEXT 5%/0.45% NACL 1000ML 1,000 ML IV SCH (13:49)
[2021-09-11] MEDS ORDERED: LACTULOSE 20G/30ML UDC PO NR (20:00)
[2021-09-11] MEDS ORDERED: ALBUTEROL (0.083%) 2.5MG/3ML NEB ONE (20:13)
[2021-09-12] VITALS (13 sets, daily range): BP systolic 113–159; BP diastolic 52–83
[2021-09-12] MEDS ORDERED: IPRATROPIUM/ALBUTEROL 0.5-3(2.5)MG/3ML NEB ONE ×6 (00:01→20:17)
[2021-09-12] MEDS: METOCLOPRAMIDE HCL 10MG/2ML VIAL IV SCH ×5 (00:09→23:09)
[2021-09-12] MEDS: BLOOD SUGAR DIAGNOSTIC STRIP TEST SCH ×5 (00:09→23:09)
[2021-09-12] MEDS: IPRATROPIUM/ALBUTEROL 0.5-3(2.5)MG/3ML NEB HHN SCH ×6 (00:37→22:21)
[2021-09-12] MEDS: ACETAMINOPHEN 650MG/20.3ML UDC PO PRN ×2 (03:52→13:42)
[2021-09-12] MEDS: INSULIN LISPRO 100 UNITS/ML SUBCUT SCH ×5 (06:00→23:09)
[2021-09-12 06:32] LABS: HEMATOCRIT. 24.8 % (42.0-52.0); HEMOGLOBIN. 8.2 g/dL (14.0-18.0); MEAN CORPUSCULAR HEMOGLOBIN 29.7 pg (28.0-32.0); MEAN CORPUSCULAR VOLUME 89.3 fL (80.0-94.0); MEAN PLATELET VOLUME 8.4 fl (7.4-10.4); PLATELET 237 x1000/uL (130-400); RED BLOOD CELL COUNT 2.78 mill/uL (4.7-6.1); RED CELL DISTRIBUTION WIDTH 15.3 % (11.6-14.6)
[2021-09-12 06:45] LABS: CHLORIDE 108 mEq/L (98-107)
[2021-09-12] MEDS ORDERED: POTASSIUM CHLORIDE 20MEQ TABLET SR PO SCH (08:45)
[2021-09-12] MEDS: DOCUSATE SODIUM SUGAR FREE 100MG/10ML UDC NG SCH (09:00)
[2021-09-12] MEDS: METOPROLOL TARTRATE 50MG TABLET PO SCH ×2 (09:54→20:50)
[2021-09-12] MEDS: SUCRALFATE 1 G/10 ML UDC PO SCH ×4 (09:55→20:49)
[2021-09-12] MEDS: AMLODIPINE 10MG TABLET PO SCH (09:55)
[2021-09-12] MEDS: PANTOPRAZOLE SODIUM 40 MG/VIAL IV SCH ×2 (09:55→20:49)
[2021-09-12] MEDS: HYDRALAZINE HCL 100MG TABLET PO SCH ×2 (09:56→18:58)
[2021-09-12 10:22] LABS: PLATELET ESTIMATE NORMAL
[2021-09-12] MEDS: DEXT 5%/0.45% NACL 1000ML 1,000 ML IV SCH (13:43)
[2021-09-12] MEDS: LEVOFLOXACIN 750MG PREMIX 150 ML IV SCH (13:51)
[2021-09-12] MEDS ORDERED: HYDRALAZINE HCL 100MG TABLET ONE (18:40)
[2021-09-12] MEDS: COLISTIMETHATE SODIUM 150MG/VIAL INH SCH (22:21)
[2021-09-13] VITALS (12 sets, daily range): BP systolic 99–134; BP diastolic 46–63
[2021-09-13] MEDS ORDERED: IPRATROPIUM/ALBUTEROL 0.5-3(2.5)MG/3ML NEB ONE ×2 (00:18→07:26)
[2021-09-13] MEDS: IPRATROPIUM/ALBUTEROL 0.5-3(2.5)MG/3ML NEB HHN SCH ×5 (01:54→20:30)
[2021-09-13] MEDS: INSULIN LISPRO 100 UNITS/ML SUBCUT SCH ×3 (05:19→17:09)
[2021-09-13] MEDS: BLOOD SUGAR DIAGNOSTIC STRIP TEST SCH ×3 (05:19→17:12)
[2021-09-13] MEDS: METOCLOPRAMIDE HCL 10MG/2ML VIAL IV SCH ×4 (05:20→23:20)
[2021-09-13 06:10] LABS: HEMATOCRIT. 23.1 % (42.0-52.0); HEMOGLOBIN. 7.7 g/dL (14.0-18.0); MEAN CORPUSCULAR VOLUME 89.7 fL (80.0-94.0); MEAN PLATELET VOLUME 8.5 fl (7.4-10.4); PLATELET 201 x1000/uL (130-400); RED BLOOD CELL COUNT 2.58 mill/uL (4.7-6.1); RED CELL DISTRIBUTION WIDTH 15.2 % (11.6-14.6)
[2021-09-13 06:35] LABS: CHLORIDE 110 mEq/L (98-107)
[2021-09-13] MEDS: COLISTIMETHATE SODIUM 150MG/VIAL INH SCH ×2 (07:35→18:00)
[2021-09-13] MEDS: SUCRALFATE 1 G/10 ML UDC PO SCH ×4 (08:28→20:56)
[2021-09-13] MEDS: AMLODIPINE 10MG TABLET PO SCH (08:29)
[2021-09-13] MEDS: PANTOPRAZOLE SODIUM 40 MG/VIAL IV SCH ×2 (08:29→20:56)
[2021-09-13] MEDS: METOPROLOL TARTRATE 50MG TABLET PO SCH ×2 (08:30→20:57)
[2021-09-13] MEDS: HYDRALAZINE HCL 100MG TABLET PO SCH ×2 (08:48→17:12)
[2021-09-13] MEDS: DOCUSATE SODIUM SUGAR FREE 100MG/10ML UDC NG SCH (08:49)
[2021-09-13] MEDS: ACETAMINOPHEN 650MG/20.3ML UDC PO PRN (11:51)
[2021-09-13] MEDS: LEVOFLOXACIN 750MG PREMIX 150 ML IV SCH (13:17)
[2021-09-13] MEDS: DEXT 5%/0.45% NACL 1000ML 1,000 ML IV SCH (13:18)
[2021-09-13 13:54] LABS: PLATELET ESTIMATE NORMAL
[2021-09-14] VITALS (16 sets, daily range): BP systolic 102–130; BP diastolic 44–88
[2021-09-14] MEDS: BLOOD SUGAR DIAGNOSTIC STRIP TEST SCH ×5 (00:16→23:35)
[2021-09-14] MEDS: IPRATROPIUM/ALBUTEROL 0.5-3(2.5)MG/3ML NEB HHN SCH ×6 (00:44→21:04)
[2021-09-14] MEDS: METOCLOPRAMIDE HCL 10MG/2ML VIAL IV SCH ×4 (05:07→23:34)
[2021-09-14] MEDS: INSULIN LISPRO 100 UNITS/ML SUBCUT SCH ×5 (05:43→23:35)
[2021-09-14 06:02] LABS: INR 1.2
[2021-09-14 06:10] LABS: HEMATOCRIT. 21.6 % (42.0-52.0); HEMOGLOBIN. 7.2 g/dL (14.0-18.0); MEAN CORPUSCULAR HEMOGLOBIN 29.9 pg (28.0-32.0); MEAN CORPUSCULAR VOLUME 89.5 fL (80.0-94.0); MEAN PLATELET VOLUME 8.7 fl (7.4-10.4); PLATELET 173 x1000/uL (130-400); RED BLOOD CELL COUNT 2.41 mill/uL (4.7-6.1); RED CELL DISTRIBUTION WIDTH 15.6 % (11.6-14.6)
[2021-09-14] MEDS: SUCRALFATE 1 G/10 ML UDC PO SCH ×4 (07:30→21:15)
[2021-09-14 08:01] LABS: CHLORIDE 107 mEq/L (98-107)
[2021-09-14] MEDS: PANTOPRAZOLE SODIUM 40 MG/VIAL IV SCH ×2 (08:21→21:15)
[2021-09-14] MEDS: DOCUSATE SODIUM SUGAR FREE 100MG/10ML UDC NG SCH (09:00)
[2021-09-14] MEDS: COLISTIMETHATE SODIUM 150MG/VIAL INH SCH ×2 (09:13→12:30)
[2021-09-14] MEDS: AMLODIPINE 10MG TABLET PO SCH (09:53)
[2021-09-14] MEDS: HYDRALAZINE HCL 100MG TABLET PO SCH ×2 (09:53→17:50)
[2021-09-14] MEDS: METOPROLOL TARTRATE 50MG TABLET PO SCH ×2 (09:54→21:15)
[2021-09-14] MEDS ORDERED: NALOXONE HCL 0.4MG/ML VIAL IV PRN (13:45)
[2021-09-14] MEDS: DEXT 5%/0.45% NACL 1000ML 1,000 ML IV SCH (13:59)
[2021-09-14] MEDS: LEVOFLOXACIN 750MG PREMIX 150 ML IV SCH (14:02)
[2021-09-14 16:39] LABS: PLATELET ESTIMATE NORMAL
[2021-09-14] MEDS: HYDROCODONE/ACETAMINOPHEN 5/325MG TABLET PO PRN (17:53)
[2021-09-14 19:59] LABS: HEMATOCRIT 23.9 % (42.0-52.0)
[2021-09-14 20:10] LABS: INR 1.3; PROTHROMBIN TIME 13.5 sec (9.6-11.0)
[2021-09-15] VITALS (12 sets, daily range): BP systolic 115–133; BP diastolic 52–63
[2021-09-15] MEDS: IPRATROPIUM/ALBUTEROL 0.5-3(2.5)MG/3ML NEB HHN SCH ×7 (00:51→23:37)
[2021-09-15] MEDS: METOCLOPRAMIDE HCL 10MG/2ML VIAL IV SCH ×4 (05:34→23:56)
[2021-09-15] MEDS: INSULIN LISPRO 100 UNITS/ML SUBCUT SCH ×3 (05:34→17:42)
[2021-09-15] MEDS: BLOOD SUGAR DIAGNOSTIC STRIP TEST SCH ×4 (05:35→23:55)
[2021-09-15 05:38] LABS: HEMATOCRIT. 24.9 % (42.0-52.0); HEMOGLOBIN. 8.3 g/dL (14.0-18.0); MEAN CORPUSCULAR HEMOGLOBIN 29.5 pg (28.0-32.0); MEAN CORPUSCULAR VOLUME 88.4 fL (80.0-94.0); MEAN PLATELET VOLUME 8.7 fl (7.4-10.4); PLATELET 158 x1000/uL (130-400); RED BLOOD CELL COUNT 2.82 mill/uL (4.7-6.1); RED CELL DISTRIBUTION WIDTH 15.8 % (11.6-14.6)
[2021-09-15 05:50] LABS: CHLORIDE 108 mEq/L (98-107); INR 1.3; PROTHROMBIN TIME 13.5 sec (9.6-11.0)
[2021-09-15] MEDS: PANTOPRAZOLE SODIUM 40 MG/VIAL IV SCH ×2 (08:39→21:16)
[2021-09-15] MEDS: DOCUSATE SODIUM SUGAR FREE 100MG/10ML UDC NG SCH (08:41)
[2021-09-15] MEDS: AMLODIPINE 10MG TABLET PO SCH (08:42)
[2021-09-15] MEDS: HYDRALAZINE HCL 100MG TABLET PO SCH ×2 (08:42→17:26)
[2021-09-15] MEDS: METOPROLOL TARTRATE 50MG TABLET PO SCH ×2 (08:42→21:18)
[2021-09-15] MEDS: ACETAMINOPHEN 650MG/20.3ML UDC PO PRN (08:51)
[2021-09-15] MEDS: SUCRALFATE 1 G/10 ML UDC PO SCH ×4 (10:27→21:16)
[2021-09-15] MEDS: DEXT 5%/0.45% NACL 1000ML 1,000 ML IV SCH (13:29)
[2021-09-15] MEDS: LEVOFLOXACIN 750MG PREMIX 150 ML IV SCH (13:50)
[2021-09-15] MEDS: HYDROCODONE/ACETAMINOPHEN 5/325MG TABLET PO PRN (14:42)
[2021-09-15 19:27] LABS: PLATELET ESTIMATE NORMAL
[2021-09-15] MEDS: COLISTIMETHATE SODIUM 150MG/VIAL INH SCH (23:38)
[2021-09-16] VITALS (11 sets, daily range): BP systolic 103–160; BP diastolic 46–105
[2021-09-16] MEDS: KCL 20MEQ/100ML PREMIX 100 ML IV ONE (01:17)
[2021-09-16] MEDS: HYDROCODONE/ACETAMINOPHEN 5/325MG TABLET PO PRN ×3 (03:07→21:04)
[2021-09-16] MEDS: IPRATROPIUM/ALBUTEROL 0.5-3(2.5)MG/3ML NEB HHN SCH ×5 (03:33→21:36)
[2021-09-16] MEDS: INSULIN LISPRO 100 UNITS/ML SUBCUT SCH ×4 (06:00→17:11)
[2021-09-16 06:10] LABS: HEMATOCRIT. 26.7 % (42.0-52.0); HEMOGLOBIN. 8.8 g/dL (14.0-18.0); MEAN CORPUSCULAR HEMOGLOBIN 29.2 pg (28.0-32.0); MEAN CORPUSCULAR VOLUME 88.2 fL (80.0-94.0); MEAN PLATELET VOLUME 8.2 fl (7.4-10.4); PLATELET 214 x1000/uL (130-400); RED BLOOD CELL COUNT 3.03 mill/uL (4.7-6.1); RED CELL DISTRIBUTION WIDTH 15.6 % (11.6-14.6)
[2021-09-16 06:13] LABS: CHLORIDE 108 mEq/L (98-107)
[2021-09-16] MEDS: BLOOD SUGAR DIAGNOSTIC STRIP TEST SCH ×3 (06:18→17:11)
[2021-09-16] MEDS: METOCLOPRAMIDE HCL 10MG/2ML VIAL IV SCH ×3 (06:20→17:52)
[2021-09-16 06:38] LABS: INR 1.3; PROTHROMBIN TIME 13.7 sec (9.6-11.0)
[2021-09-16] MEDS: DOCUSATE SODIUM SUGAR FREE 100MG/10ML UDC NG SCH (09:00)
[2021-09-16] MEDS: SUCRALFATE 1 G/10 ML UDC PO SCH ×4 (09:38→21:03)
[2021-09-16] MEDS: PANTOPRAZOLE SODIUM 40 MG/VIAL IV SCH ×2 (09:38→21:03)
[2021-09-16] MEDS: METOPROLOL TARTRATE 50MG TABLET PO SCH ×2 (09:38→21:05)
[2021-09-16] MEDS: HYDRALAZINE HCL 100MG TABLET PO SCH ×2 (09:39→17:52)
[2021-09-16] MEDS: AMLODIPINE 10MG TABLET PO SCH (09:39)
[2021-09-16] MEDS: FUROSEMIDE 40MG/4ML VIAL IVP SCH (12:16)
[2021-09-16 12:52] LABS: BG BASE EXCESS -6.8 mmol/L (-2.0-2.0); BG CARBOXYHEMOGLOBIN 0.3 % (0.5-1.5); BG DEOXYHEMOGLOBIN 1.3 % (0.0-5.0); BG FRACTION INSPIRED OXYGEN 40; BG HCO3 ACT 14.7 mmol/L (22.0-26.0); BG METHEMOGLOBIN 0.5 % (0.0-1.5); BG OXYGEN SATURATION 98.7 % (92.0-98.5); BG OXYHEMOGLOBIN 97.9 % (94.0-97.0); BG PCO2 18.7 mmHg (35.0-45.0); BG PH 7.513 (7.350-7.450); BG SAMPLE SITE RIGHT RADIAL; BG TOTAL HEMOGLOBIN 9.2 g/dL (12.0-18.0); BG VENT MODE VENT - SIMV
[2021-09-16 13:38] LABS: PLATELET ESTIMATE NORMAL
[2021-09-16] MEDS: LEVOFLOXACIN 750MG PREMIX 150 ML IV SCH (13:47)
[2021-09-16] MEDS: COLISTIMETHATE SODIUM 150MG/VIAL INH SCH ×2 (16:25→21:35)
[2021-09-16] MEDS: ACETAMINOPHEN 650MG/20.3ML UDC PO PRN (17:52)
[2021-09-17] VITALS (12 sets, daily range): BP systolic 91–135; BP diastolic 47–62
[2021-09-17] MEDS: BLOOD SUGAR DIAGNOSTIC STRIP TEST SCH ×2 (00:20→05:29)
[2021-09-17] MEDS: ACETAMINOPHEN 650MG/20.3ML UDC PO PRN ×2 (00:20→21:50)
[2021-09-17] MEDS: METOCLOPRAMIDE HCL 10MG/2ML VIAL IV SCH ×4 (00:20→19:01)
[2021-09-17] MEDS: IPRATROPIUM/ALBUTEROL 0.5-3(2.5)MG/3ML NEB HHN SCH ×4 (00:35→12:06)
[2021-09-17] MEDS: INSULIN LISPRO 100 UNITS/ML SUBCUT SCH ×2 (05:29)
[2021-09-17 07:34] LABS: HEMATOCRIT. 24.6 % (42.0-52.0); HEMOGLOBIN. 8.2 g/dL (14.0-18.0); MEAN CORPUSCULAR HEMOGLOBIN 29.6 pg (28.0-32.0); MEAN CORPUSCULAR VOLUME 89.1 fL (80.0-94.0); MEAN PLATELET VOLUME 8.3 fl (7.4-10.4); PLATELET 219 x1000/uL (130-400); RED BLOOD CELL COUNT 2.76 mill/uL (4.7-6.1); RED CELL DISTRIBUTION WIDTH 15.8 % (11.6-14.6)
[2021-09-17 07:37] LABS: INR 1.5; PROTHROMBIN TIME 15.2 sec (9.6-11.0)
[2021-09-17 07:49] LABS: CHLORIDE 110 mEq/L (98-107)
[2021-09-17] MEDS: COLISTIMETHATE SODIUM 150MG/VIAL INH SCH ×3 (08:09→20:18)
[2021-09-17] MEDS: DOCUSATE SODIUM SUGAR FREE 100MG/10ML UDC NG SCH (09:31)
[2021-09-17] MEDS: SUCRALFATE 1 G/10 ML UDC PO SCH ×4 (09:31→21:50)
[2021-09-17] MEDS: METOPROLOL TARTRATE 50MG TABLET PO SCH (09:32)
[2021-09-17] MEDS: FUROSEMIDE 40MG/4ML VIAL IVP SCH (09:32)
[2021-09-17] MEDS: AMLODIPINE 10MG TABLET PO SCH (09:32)
[2021-09-17] MEDS: PANTOPRAZOLE SODIUM 40 MG/VIAL IV SCH (09:32)
[2021-09-17] MEDS: HYDRALAZINE HCL 100MG TABLET PO SCH ×3 (09:32→19:02)
[2021-09-17 09:47] LABS: PLATELET ESTIMATE NORMAL
[2021-09-17] MEDS: LEVOFLOXACIN 750MG PREMIX 150 ML IV SCH (14:45)
[2021-09-17] MEDS ORDERED: VANCOMYCIN 1500MG in DEXTROSE 5% WATER 250ML IV NR (17:00)
[2021-09-17 17:47] LABS: BG BASE EXCESS -6.1 mmol/L (-2.0-2.0); BG CARBOXYHEMOGLOBIN 0.3 % (0.5-1.5); BG DEOXYHEMOGLOBIN 2.9 % (0.0-5.0); BG FRACTION INSPIRED OXYGEN 40; BG HCO3 ACT 16.2 mmol/L (22.0-26.0); BG METHEMOGLOBIN 0.1 % (0.0-1.5); BG OXYGEN SATURATION 97.1 % (92.0-98.5); BG OXYHEMOGLOBIN 96.7 % (94.0-97.0); BG PCO2 22.7 mmHg (35.0-45.0); BG PH 7.472 (7.350-7.450); BG PO2 90.6 mmHg (75.0-100.0); BG SAMPLE SITE RIGHT RADIAL; BG TOTAL HEMOGLOBIN 9.6 g/dL (12.0-18.0); BG VENT MODE VENT - AC
[2021-09-17] MEDS: METOPROLOL TARTRATE 100MG TABLET PO SCH (21:00)
[2021-09-17] MEDS ORDERED: DEXTROSE 50% WATER 50ML SYRINGE IV PRN (22:30)
[2021-09-18] VITALS (12 sets, daily range): BP systolic 102–125; BP diastolic 46–74
[2021-09-18] MEDS: METOCLOPRAMIDE HCL 10MG/2ML VIAL IV SCH ×4 (00:48→18:06)
[2021-09-18] MEDS: BLOOD SUGAR DIAGNOSTIC STRIP TEST SCH ×4 (00:49→18:06)
[2021-09-18] MEDS ORDERED: VANCOMYCIN 750MG PMX (XELLIA) 150 ML IV SCH (05:00)
[2021-09-18] MEDS: ACETAMINOPHEN 650MG/20.3ML UDC PO PRN (05:22)
[2021-09-18] MEDS: INSULIN LISPRO 100 UNITS/ML SUBCUT SCH ×4 (05:27→18:00)
[2021-09-18 06:38] LABS: INR 1.4; PROTHROMBIN TIME 14.2 sec (9.6-11.0)
[2021-09-18 06:50] LABS: HEMATOCRIT. 23.6 % (42.0-52.0); HEMOGLOBIN. 7.9 g/dL (14.0-18.0); MEAN CORPUSCULAR HEMOGLOBIN 29.3 pg (28.0-32.0); MEAN CORPUSCULAR VOLUME 87.3 fL (80.0-94.0); MEAN PLATELET VOLUME 8.6 fl (7.4-10.4); PLATELET 215 x1000/uL (130-400); RED CELL DISTRIBUTION WIDTH 15.3 % (11.6-14.6)
[2021-09-18 06:58] LABS: CHLORIDE 106 mEq/L (98-107)
[2021-09-18] MEDS: SUCRALFATE 1 G/10 ML UDC PO SCH (08:03)
[2021-09-18] MEDS: FUROSEMIDE 40MG/4ML VIAL IVP SCH (08:03)
[2021-09-18] MEDS: DOCUSATE SODIUM SUGAR FREE 100MG/10ML UDC NG SCH (08:08)
[2021-09-18] MEDS: HYDRALAZINE HCL 100MG TABLET PO SCH ×2 (08:19→17:00)
[2021-09-18] MEDS: AMLODIPINE 10MG TABLET PO SCH (08:19)
[2021-09-18] MEDS: METOPROLOL TARTRATE 100MG TABLET PO SCH ×2 (08:19→20:54)
[2021-09-18] MEDS: COLISTIMETHATE SODIUM 150MG/VIAL INH SCH ×2 (08:35→23:44)
[2021-09-18] MEDS: HYDROCODONE/ACETAMINOPHEN 5/325MG TABLET PO PRN ×2 (10:08→17:59)
[2021-09-18] MEDS ORDERED: LORAZEPAM 2MG/ML CPJ IV PRN (11:45)
[2021-09-18] MEDS: CITALOPRAM HYDROBROMIDE 10MG TABLET PO SCH (11:46)
[2021-09-18] MEDS: LORAZEPAM 2MG/ML CPJ IV SCH ×2 (11:47→20:54)
[2021-09-18] MEDS: LEVOFLOXACIN 750MG PREMIX 150 ML IV SCH (13:44)
[2021-09-18 20:42] LABS: PLATELET ESTIMATE NORMAL
[2021-09-18] MEDS: VANCOMYCIN 750MG PMX (XELLIA) 150 ML IV SCH (20:54)
[2021-09-19] VITALS (12 sets, daily range): BP systolic 111–146; BP diastolic 45–89
[2021-09-19] MEDS: BLOOD SUGAR DIAGNOSTIC STRIP TEST SCH ×2 (00:11→06:00)
[2021-09-19] MEDS: METOCLOPRAMIDE HCL 10MG/2ML VIAL IV SCH ×4 (00:11→18:28)
[2021-09-19] MEDS: ACETAMINOPHEN 650MG/20.3ML UDC PO PRN ×2 (00:12→05:59)
[2021-09-19] MEDS: INSULIN LISPRO 100 UNITS/ML SUBCUT SCH ×2 (06:00)
[2021-09-19 08:13] LABS: HEMATOCRIT. 23.9 % (42.0-52.0); HEMOGLOBIN. 7.8 g/dL (14.0-18.0); MEAN CORPUSCULAR HEMOGLOBIN 28.9 pg (28.0-32.0); MEAN CORPUSCULAR VOLUME 88.5 fL (80.0-94.0); MEAN PLATELET VOLUME 8.4 fl (7.4-10.4); PLATELET 209 x1000/uL (130-400); RED CELL DISTRIBUTION WIDTH 15.5 % (11.6-14.6)
[2021-09-19 08:16] LABS: INR 1.3; PROTHROMBIN TIME 13.9 sec (9.6-11.0)
[2021-09-19 08:27] LABS: CHLORIDE 107 mEq/L (98-107)
[2021-09-19] MEDS: HYDRALAZINE HCL 100MG TABLET PO SCH ×2 (09:00→18:28)
[2021-09-19] MEDS: METOPROLOL TARTRATE 100MG TABLET PO SCH ×2 (09:00→20:52)
[2021-09-19] MEDS: AMLODIPINE 10MG TABLET PO SCH (09:00)
[2021-09-19] MEDS: COLISTIMETHATE SODIUM 150MG/VIAL INH SCH ×2 (09:01→20:29)
[2021-09-19] MEDS: FUROSEMIDE 40MG/4ML VIAL IVP SCH (09:18)
[2021-09-19] MEDS ORDERED: IPRATROPIUM/ALBUTEROL 0.5-3(2.5)MG/3ML NEB ONE (09:18)
[2021-09-19] MEDS: VANCOMYCIN 750MG PMX (XELLIA) 150 ML IV SCH (09:18)
[2021-09-19] MEDS: CITALOPRAM HYDROBROMIDE 10MG TABLET PO SCH (09:18)
[2021-09-19] MEDS: DOCUSATE SODIUM SUGAR FREE 100MG/10ML UDC NG SCH (09:18)
[2021-09-19] MEDS: LORAZEPAM 2MG/ML CPJ IV SCH ×2 (09:26→20:50)
[2021-09-19] MEDS ORDERED: POTASSIUM CHLORIDE 20MEQ TABLET SR PO SCH (10:00)
[2021-09-19 13:43] LABS: PLATELET ESTIMATE NORMAL
[2021-09-19] MEDS: LEVOFLOXACIN 750MG PREMIX 150 ML IV SCH (14:26)
[2021-09-19] MEDS ORDERED: POTASSIUM CHLORIDE 20MEQ TABLET SR PO NR (21:15)
[2021-09-20] VITALS (13 sets, daily range): BP systolic 94–148; BP diastolic 39–70
[2021-09-20] MEDS: ACETAMINOPHEN 650MG/20.3ML UDC PO PRN ×3 (00:48→20:58)
[2021-09-20] MEDS: METOCLOPRAMIDE HCL 10MG/2ML VIAL IV SCH ×4 (00:48→18:10)
[2021-09-20] MEDS: VANCOMYCIN 750MG PMX (XELLIA) 150 ML IV SCH ×2 (05:55→23:23)
[2021-09-20] MEDS: COLISTIMETHATE SODIUM 150MG/VIAL INH SCH ×2 (08:39→20:35)
[2021-09-20] MEDS: AMLODIPINE 10MG TABLET PO SCH (09:00)
[2021-09-20] MEDS: DOCUSATE SODIUM SUGAR FREE 100MG/10ML UDC NG SCH (09:00)
[2021-09-20] MEDS: METOPROLOL TARTRATE 100MG TABLET PO SCH ×2 (09:00→20:57)
[2021-09-20] MEDS: HYDRALAZINE HCL 100MG TABLET PO SCH ×2 (09:00→17:00)
[2021-09-20] MEDS: FUROSEMIDE 40MG/4ML VIAL IVP SCH (09:05)
[2021-09-20] MEDS: LORAZEPAM 2MG/ML CPJ IV SCH ×2 (09:06→20:57)
[2021-09-20] MEDS: CITALOPRAM HYDROBROMIDE 10MG TABLET PO SCH (09:06)
[2021-09-20] MEDS: LEVOFLOXACIN 750MG PREMIX 150 ML IV SCH (13:22)
[2021-09-20] MEDS: HYDROCODONE/ACETAMINOPHEN 5/325MG TABLET PO PRN (18:10)
[2021-09-21] VITALS (15 sets, daily range): BP systolic 102–137; BP diastolic 45–92
[2021-09-21] MEDS: ACETAMINOPHEN 650MG/20.3ML UDC PO PRN ×2 (03:27→18:56)
[2021-09-21] MEDS: FUROSEMIDE 40MG/4ML VIAL IVP SCH (09:00)
[2021-09-21] MEDS: CITALOPRAM HYDROBROMIDE 10MG TABLET PO SCH (09:00)
[2021-09-21] MEDS: AMLODIPINE 10MG TABLET PO SCH (09:00)
[2021-09-21] MEDS: LORAZEPAM 2MG/ML CPJ IV SCH ×2 (09:00→20:46)
[2021-09-21] MEDS: METOPROLOL TARTRATE 100MG TABLET PO SCH ×2 (09:00→20:49)
[2021-09-21] MEDS: HYDRALAZINE HCL 100MG TABLET PO SCH ×2 (09:00→17:00)
[2021-09-21 09:20] LABS: BG BASE EXCESS -7.6 mmol/L (-2.0-2.0); BG CARBOXYHEMOGLOBIN 0.2 % (0.5-1.5); BG DEOXYHEMOGLOBIN 1.4 % (0.0-5.0); BG FRACTION INSPIRED OXYGEN 40; BG HCO3 ACT 15.4 mmol/L (22.0-26.0); BG OXYGEN SATURATION 98.6 % (92.0-98.5); BG OXYHEMOGLOBIN 98.4 % (94.0-97.0); BG PCO2 22.6 mmHg (35.0-45.0); BG PH 7.451 (7.350-7.450); BG PO2 125.1 mmHg (75.0-100.0); BG SAMPLE SITE RIGHT RADIAL; BG TOTAL HEMOGLOBIN 7.6 g/dL (12.0-18.0); BG VENT MODE VENT - SIMV
[2021-09-21] MEDS: COLISTIMETHATE SODIUM 150MG/VIAL INH SCH ×2 (09:42→20:53)
[2021-09-21 13:15] LABS: HEMATOCRIT 22.5 % (42.0-52.0); HEMOGLOBIN 7.4 g/dL (14.0-18.0); MEAN CORPUSCULAR HEMOGLOBIN 28.6 pg (28.0-32.0); MEAN CORPUSCULAR VOLUME 87.7 fL (80.0-94.0); PLATELET 222 x1000/uL (130-400); RED BLOOD CELL COUNT 2.57 mill/uL (4.7-6.1); RED CELL DISTRIBUTION WIDTH 15.8 % (11.6-14.6)
[2021-09-21] MEDS: LEVOFLOXACIN 750MG PREMIX 150 ML IV SCH (13:26)
[2021-09-21 13:30] LABS: INR 1.3; PROTHROMBIN TIME 14.1 sec (9.6-11.0)
[2021-09-21 13:46] LABS: CHLORIDE 111 mEq/L (98-107)
[2021-09-21] MEDS: HYDROCODONE/ACETAMINOPHEN 5/325MG TABLET PO PRN (16:53)
[2021-09-21] MEDS ORDERED: NALOXONE HCL 0.4MG/ML VIAL IV PRN (17:00)
[2021-09-21] MEDS: VANCOMYCIN 750MG PMX (XELLIA) 150 ML IV SCH (17:06)
[2021-09-22] VITALS (12 sets, daily range): BP systolic 114–136; BP diastolic 45–65
[2021-09-22 00:04] LABS: HEMOGLOBIN 7.9 g/dL (14.0-18.0)
[2021-09-22 00:17] LABS: INR 1.4; PROTHROMBIN TIME 14.6 sec (9.6-11.0)
[2021-09-22 05:36] LABS: HEMATOCRIT. 25.3 % (42.0-52.0); HEMOGLOBIN. 8.3 g/dL (14.0-18.0); MEAN CORPUSCULAR VOLUME 88.4 fL (80.0-94.0); MEAN PLATELET VOLUME 8.4 fl (7.4-10.4); PLATELET 203 x1000/uL (130-400); RED BLOOD CELL COUNT 2.86 mill/uL (4.7-6.1); RED CELL DISTRIBUTION WIDTH 15.2 % (11.6-14.6)
[2021-09-22 05:50] LABS: INR 1.4; PROTHROMBIN TIME 14.2 sec (9.6-11.0)
[2021-09-22 06:14] LABS: CHLORIDE 115 mEq/L (98-107)
[2021-09-22] MEDS: COLISTIMETHATE SODIUM 150MG/VIAL INH SCH (08:01)
[2021-09-22] MEDS: FUROSEMIDE 40MG/4ML VIAL IVP SCH (08:20)
[2021-09-22] MEDS: LORAZEPAM 2MG/ML CPJ IV SCH ×2 (08:20→20:58)
[2021-09-22] MEDS: CITALOPRAM HYDROBROMIDE 10MG TABLET PO SCH (09:00)
[2021-09-22] MEDS: AMLODIPINE 10MG TABLET PO SCH (09:00)
[2021-09-22] MEDS: HYDRALAZINE HCL 100MG TABLET PO SCH ×2 (09:00→16:35)
[2021-09-22] MEDS: METOPROLOL TARTRATE 100MG TABLET PO SCH ×2 (09:00→20:59)
[2021-09-22 10:44] LABS: PLATELET ESTIMATE NORMAL
[2021-09-22] MEDS: LEVOFLOXACIN 750MG PREMIX 150 ML IV SCH (13:57)
[2021-09-22] MEDS: VANCOMYCIN 750MG PMX (XELLIA) 150 ML IV SCH (17:19)
[2021-09-22] MEDS: MEROPENEM 1,000 MG in SODIUM CHLORIDE 0.9% 100 ML IV SCH (20:58)
[2021-09-23] VITALS (14 sets, daily range): BP systolic 94–142; BP diastolic 47–74
[2021-09-23] MEDS: MEROPENEM 1,000 MG in SODIUM CHLORIDE 0.9% 100 ML IV SCH ×3 (04:23→22:20)
[2021-09-23 05:57] LABS: HEMOGLOBIN. 8.7 g/dL (14.0-18.0); MEAN CORPUSCULAR HEMOGLOBIN 29.7 pg (28.0-32.0); MEAN CORPUSCULAR VOLUME 88.5 fL (80.0-94.0); MEAN PLATELET VOLUME 8.4 fl (7.4-10.4); PLATELET 194 x1000/uL (130-400); RED BLOOD CELL COUNT 2.94 mill/uL (4.7-6.1); RED CELL DISTRIBUTION WIDTH 15.3 % (11.6-14.6)
[2021-09-23 06:05] LABS: CHLORIDE 114 mEq/L (98-107)
[2021-09-23 06:31] LABS: INR 1.4; PROTHROMBIN TIME 15.1 sec (9.6-11.0)
[2021-09-23 07:35] LABS: PLATELET ESTIMATE NORMAL
[2021-09-23] MEDS ORDERED: POTASSIUM CHLORIDE INJ 40 MEQ in DEXT 5% WATER 250 ML IV ONE (08:00)
[2021-09-23] MEDS: AMLODIPINE 10MG TABLET PO SCH (09:00)
[2021-09-23] MEDS ORDERED: KCL 20MEQ/100ML X 2 FOR TOTAL KCL 40MEQ/200ML IV SCH (09:00)
[2021-09-23] MEDS: HYDRALAZINE HCL 100MG TABLET PO SCH ×2 (09:00→16:50)
[2021-09-23] MEDS: METOPROLOL TARTRATE 100MG TABLET PO SCH ×2 (09:00→21:00)
[2021-09-23] MEDS: ACETAMINOPHEN 650MG/20.3ML UDC PO PRN (09:14)
[2021-09-23] MEDS: FUROSEMIDE 40MG/4ML VIAL IVP SCH (09:14)
[2021-09-23] MEDS: CITALOPRAM HYDROBROMIDE 10MG TABLET PO SCH (09:14)
[2021-09-23] MEDS: LORAZEPAM 2MG/ML CPJ IV SCH (09:14)
[2021-09-23] MEDS: KCL 20MEQ/100ML X 2 FOR TOTAL KCL 40MEQ/200ML IV SCH ×2 (13:39→15:56)
[2021-09-23] MEDS ORDERED: POLYETHYLENE GLYCOL 3350 (17GM) 1 DOSE PACK NG NR (16:30)
[2021-09-23] MEDS: METOCLOPRAMIDE HCL 10MG/2ML VIAL IV SCH ×2 (17:04→23:11)
[2021-09-23] MEDS: VANCOMYCIN 750MG PMX (XELLIA) 150 ML IV SCH (18:24)
[2021-09-23] MEDS: COLISTIMETHATE SODIUM 150MG/VIAL INH SCH (21:40)
[2021-09-24] VITALS (18 sets, daily range): BP systolic 100–139; BP diastolic 19–91
[2021-09-24 05:11] LABS: INR 1.5; PROTHROMBIN TIME 15.2 sec (9.6-11.0)
[2021-09-24] MEDS: MEROPENEM 1,000 MG in SODIUM CHLORIDE 0.9% 100 ML IV SCH ×3 (05:16→20:38)
[2021-09-24] MEDS: METOCLOPRAMIDE HCL 10MG/2ML VIAL IV SCH ×3 (05:22→17:33)
[2021-09-24 06:03] LABS: CHLORIDE 118 mEq/L (98-107)
[2021-09-24 06:15] LABS: BASOPHILS % 0.3 % (0.0-2.0); EOSINOPHILS % 0.4 % (0.0-5.0); HEMATOCRIT. 26.7 % (42.0-52.0); LYMPHOCYTES % 7.3 % (20.0-50.0); MEAN CORPUSCULAR HEMOGLOBIN 29.7 pg (28.0-32.0); MEAN CORPUSCULAR VOLUME 88.3 fL (80.0-94.0); MEAN PLATELET VOLUME 8.6 fl (7.4-10.4); MONOCYTES % 5.8 % (2.0-8.0); NEUTROPHILS % 86.2 % (40.0-76.0); PLATELET 178 x1000/uL (130-400); RED BLOOD CELL COUNT 3.02 mill/uL (4.7-6.1); RED CELL DISTRIBUTION WIDTH 15.2 % (11.6-14.6)
[2021-09-24] MEDS: COLISTIMETHATE SODIUM 150MG/VIAL INH SCH ×2 (07:47→19:45)
[2021-09-24] MEDS ORDERED: POTASSIUM CHLORIDE INJ 40 MEQ in DEXT 5% WATER 250 ML IV ONE (08:45)
[2021-09-24] MEDS: METOPROLOL TARTRATE 100MG TABLET PO SCH ×2 (09:00→20:38)
[2021-09-24] MEDS: HYDRALAZINE HCL 100MG TABLET PO SCH ×2 (09:00→17:00)
[2021-09-24] MEDS: CITALOPRAM HYDROBROMIDE 10MG TABLET PO SCH (09:00)
[2021-09-24] MEDS: AMLODIPINE 10MG TABLET PO SCH (09:00)
[2021-09-24] MEDS: FUROSEMIDE 40MG/4ML VIAL IVP SCH (10:56)
[2021-09-24] MEDS: KCL 20MEQ/100ML PREMIX 100 ML IV SCH ×2 (10:57→14:58)
[2021-09-24] MEDS: PANTOPRAZOLE SODIUM 40 MG/VIAL IV SCH ×2 (12:28→20:37)
[2021-09-24] MEDS: PHYTONADIONE 10MG/ML AMP SUBCUT SCH (12:29)
[2021-09-24] MEDS: ACETAMINOPHEN 650MG/20.3ML UDC PO PRN (16:37)
[2021-09-24] MEDS: VANCOMYCIN 750MG PMX (XELLIA) 150 ML IV SCH (17:33)
[2021-09-24] MEDS ORDERED: POTASSIUM CHLORIDE 20MEQ/PACKET NG NR (21:00)
[2021-09-25] VITALS (14 sets, daily range): BP systolic 90–132; BP diastolic 46–77
[2021-09-25] MEDS: METOCLOPRAMIDE HCL 10MG/2ML VIAL IV SCH ×5 (00:03→23:42)
[2021-09-25 02:58] LABS: BASOPHILS % 0.4 % (0.0-2.0); EOSINOPHILS % 1.6 % (0.0-5.0); HEMATOCRIT. 26.1 % (42.0-52.0); HEMOGLOBIN. 8.8 g/dL (14.0-18.0); LYMPHOCYTES % 8.7 % (20.0-50.0); MEAN CORPUSCULAR HEMOGLOBIN 29.7 pg (28.0-32.0); MEAN CORPUSCULAR VOLUME 87.8 fL (80.0-94.0); MONOCYTES % 6.5 % (2.0-8.0); NEUTROPHILS % 82.8 % (40.0-76.0); PLATELET 190 x1000/uL (130-400); RED BLOOD CELL COUNT 2.98 mill/uL (4.7-6.1); RED CELL DISTRIBUTION WIDTH 15.5 % (11.6-14.6)
[2021-09-25 03:07] LABS: INR 1.3; PROTHROMBIN TIME 13.7 sec (9.6-11.0)
[2021-09-25] MEDS: MEROPENEM 1,000 MG in SODIUM CHLORIDE 0.9% 100 ML IV SCH ×3 (03:27→20:28)
[2021-09-25 03:28] LABS: CHLORIDE 120 mEq/L (98-107)
[2021-09-25] MEDS: AMLODIPINE 10MG TABLET PO SCH (09:00)
[2021-09-25] MEDS: HYDRALAZINE HCL 100MG TABLET PO SCH ×2 (09:00→17:52)
[2021-09-25] MEDS: METOPROLOL TARTRATE 100MG TABLET PO SCH ×2 (09:00→20:29)
[2021-09-25] MEDS: COLISTIMETHATE SODIUM 150MG/VIAL INH SCH ×2 (09:00→20:51)
[2021-09-25] MEDS: CITALOPRAM HYDROBROMIDE 10MG TABLET PO SCH (09:00)
[2021-09-25] MEDS: PANTOPRAZOLE SODIUM 40 MG/VIAL IV SCH ×2 (09:53→20:28)
[2021-09-25] MEDS: PHYTONADIONE 10MG/ML AMP SUBCUT SCH (09:53)
[2021-09-25] MEDS: FUROSEMIDE 40MG/4ML VIAL IVP SCH (10:34)
[2021-09-25] MEDS: HYDROCODONE/ACETAMINOPHEN 5/325MG TABLET PO PRN (10:36)
[2021-09-25] MEDS ORDERED: FENTANYL CITRATE/PF 50MCG/ML 2ML VIAL ONE (12:20)
[2021-09-25] MEDS ORDERED: MIDAZOLAM HCL 5 MG/5 ML VIAL ONE (12:21)
[2021-09-25] MEDS ORDERED: FENTANYL CITRATE/PF 50MCG/ML 2ML VIAL IV PRN (13:28)
[2021-09-25] MEDS ORDERED: MIDAZOLAM HCL 2 MG/2 ML VIAL IV PRN (13:31)
[2021-09-25] MEDS: VANCOMYCIN 750MG PMX (XELLIA) 150 ML IV SCH (17:52)
[2021-09-26] VITALS (13 sets, daily range): BP systolic 90–122; BP diastolic 49–75
[2021-09-26] MEDS: MEROPENEM 1,000 MG in SODIUM CHLORIDE 0.9% 100 ML IV SCH ×3 (03:56→21:31)
[2021-09-26] MEDS: ACETAMINOPHEN 650MG/20.3ML UDC PO PRN (03:57)
[2021-09-26] MEDS: METOCLOPRAMIDE HCL 10MG/2ML VIAL IV SCH ×4 (05:51→23:10)
[2021-09-26 06:22] LABS: BASOPHILS % 0.4 % (0.0-2.0); EOSINOPHILS % 2.6 % (0.0-5.0); HEMATOCRIT. 25.6 % (42.0-52.0); HEMOGLOBIN. 8.6 g/dL (14.0-18.0); LYMPHOCYTES % 12.2 % (20.0-50.0); MEAN CORPUSCULAR VOLUME 89.7 fL (80.0-94.0); MEAN PLATELET VOLUME 8.6 fl (7.4-10.4); MONOCYTES % 9.4 % (2.0-8.0); NEUTROPHILS % 75.4 % (40.0-76.0); PLATELET 157 x1000/uL (130-400); RED BLOOD CELL COUNT 2.85 mill/uL (4.7-6.1); RED CELL DISTRIBUTION WIDTH 15.4 % (11.6-14.6)
[2021-09-26 06:28] LABS: INR 1.2; PROTHROMBIN TIME 12.7 sec (9.6-11.0)
[2021-09-26 06:34] LABS: CHLORIDE 125 mEq/L (98-107)
[2021-09-26] MEDS: COLISTIMETHATE SODIUM 150MG/VIAL INH SCH ×2 (08:08→21:11)
[2021-09-26] MEDS ORDERED: POTASSIUM CHLORIDE 20MEQ/PACKET PO NR (08:15)
[2021-09-26] MEDS: PANTOPRAZOLE SODIUM 40 MG/VIAL IV SCH ×2 (10:09→21:30)
[2021-09-26] MEDS: FUROSEMIDE 40MG/4ML VIAL IVP SCH (10:09)
[2021-09-26] MEDS: PHYTONADIONE 10MG/ML AMP SUBCUT SCH (10:10)
[2021-09-26] MEDS: HYDRALAZINE HCL 100MG TABLET PO SCH ×2 (10:11→17:00)
[2021-09-26] MEDS: METOPROLOL TARTRATE 100MG TABLET PO SCH ×2 (10:11→21:00)
[2021-09-26] MEDS: CITALOPRAM HYDROBROMIDE 10MG TABLET PO SCH (10:11)
[2021-09-26] MEDS: AMLODIPINE 10MG TABLET PO SCH (10:12)
[2021-09-26] MEDS: KCL 20MEQ/100ML PREMIX 100 ML IV SCH ×2 (10:12→14:37)
[2021-09-26] MEDS: VANCOMYCIN 750MG PMX (XELLIA) 150 ML IV SCH (17:39)
[2021-09-27] VITALS (10 sets, daily range): BP systolic 101–139; BP diastolic 56–96
[2021-09-27] MEDS: MEROPENEM 1,000 MG in SODIUM CHLORIDE 0.9% 100 ML IV SCH ×2 (03:24→12:58)
[2021-09-27] MEDS: METOCLOPRAMIDE HCL 10MG/2ML VIAL IV SCH ×2 (05:02→12:58)
[2021-09-27 06:25] LABS: BASOPHILS % 0.3 % (0.0-2.0); EOSINOPHILS % 4.1 % (0.0-5.0); HEMATOCRIT. 28.4 % (42.0-52.0); HEMOGLOBIN. 9.3 g/dL (14.0-18.0); LYMPHOCYTES % 16.5 % (20.0-50.0); MEAN CORPUSCULAR HEMOGLOBIN 29.4 pg (28.0-32.0); MONOCYTES % 9.2 % (2.0-8.0); NEUTROPHILS % 69.9 % (40.0-76.0); PLATELET 148 x1000/uL (130-400); RED BLOOD CELL COUNT 3.15 mill/uL (4.7-6.1); RED CELL DISTRIBUTION WIDTH 15.9 % (11.6-14.6)
[2021-09-27 06:32] LABS: INR 1.2; PROTHROMBIN TIME 12.4 sec (9.6-11.0)
[2021-09-27 06:37] LABS: CHLORIDE 130 mEq/L (98-107)
[2021-09-27] MEDS ORDERED: DEXTROSE 5% WATER 1,000 ML IV SCH (08:00)
[2021-09-27] MEDS: COLISTIMETHATE SODIUM 150MG/VIAL INH SCH (08:48)
[2021-09-27] MEDS: HYDRALAZINE HCL 100MG TABLET PO SCH (09:00)
[2021-09-27] MEDS: METOPROLOL TARTRATE 100MG TABLET PO SCH (09:00)
[2021-09-27] MEDS: PANTOPRAZOLE SODIUM 40 MG/VIAL IV SCH (09:08)
[2021-09-27] MEDS: CITALOPRAM HYDROBROMIDE 10MG TABLET PO SCH (09:08)
[2021-09-27] MEDS: FUROSEMIDE 40MG/4ML VIAL IVP SCH (09:08)
== END 2021-09-27 16:54 | DRG 5 ==
LOC: ER 19:11 → MICUSO 22:33 → EDBEDREQ 22:50 → EDBEDREQSVC 22:50 → EDBEDREQTM 22:50 → MICUSO 08-20 01:30 → MICUNO 08-21 01:20 → 5EST 09-03 17:45
PROVIDERS: ADMIT Internal Medicine; ATTEND Internal Medicine
PROC: 5A1955Z Respiratory Ventilation, Greater than 96 Consecutive Hours (ICD-10-PCS; principal; 2021-08-19)
PROC: 0BH17EZ Insertion of Endotracheal Airway into Trachea, Via Natural or Artificial Opening (ICD-10-PCS; 2021-08-19)
PROC: B54CZZA Ultrasonography of Left Lower Extremity Veins, Guidance (ICD-10-PCS; 2021-08-19)
PROC: 06HY33Z Insertion of Infusion Device into Lower Vein, Percutaneous Approach (ICD-10-PCS; 2021-08-19)
PROC: 30233N1 Transfusion of Nonautologous Red Blood Cells into Peripheral Vein, Percutaneous Approach (ICD-10-PCS; 2021-08-19)
PROC: 0DB78ZX Excision of Stomach, Pylorus, Via Natural or Artificial Opening Endoscopic, Diagnostic (ICD-10-PCS; 2021-08-20)
PROC: 02HV33Z Insertion of Infusion Device into Superior Vena Cava, Percutaneous Approach (ICD-10-PCS; 2021-08-30)
PROC: B548ZZA Ultrasonography of Superior Vena Cava, Guidance (ICD-10-PCS; 2021-08-30)
PROC: 0B110F4 Bypass Trachea to Cutaneous with Tracheostomy Device, Open Approach (ICD-10-PCS; 2021-09-02)
PROC: 0DH63UZ Insertion of Feeding Device into Stomach, Percutaneous Approach (ICD-10-PCS; 2021-09-22)
PROC: 0DB78ZX Excision of Stomach, Pylorus, Via Natural or Artificial Opening Endoscopic, Diagnostic (ICD-10-PCS; 2021-09-22)
PROC: 30233K1 Transfusion of Nonautologous Frozen Plasma into Peripheral Vein, Percutaneous Approach (ICD-10-PCS; 2021-09-24)
DX: A41.9 Sepsis, unspecified organism (principal); R57.8 Other shock; N17.0 Acute kidney failure with tubular necrosis; G92.8 Other toxic encephalopathy; E43 Unspecified severe protein-calorie malnutrition; J15.1 Pneumonia due to Pseudomonas; K25.4 Chronic or unspecified gastric ulcer with hemorrhage; K85.20 Alcohol induced acute pancreatitis without necrosis or infection; E87.0 Hyperosmolality and hypernatremia; E87.4 Mixed disorder of acid-base balance; E87.8 Other disorders of electrolyte and fluid balance, not elsewhere classified; E83.39 Other disorders of phosphorus metabolism; J96.00 Acute respiratory failure, unspecified whether with hypoxia or hypercapnia; E11.9 Type 2 diabetes mellitus without complications; D53.9 Nutritional anemia, unspecified; E83.51 Hypocalcemia; E87.6 Hypokalemia; E87.1 Hypo-osmolality and hyponatremia; I10 Essential (primary) hypertension; K52.9 Noninfective gastroenteritis and colitis, unspecified; Y90.2 Blood alcohol level of 40-59 mg/100 ml; K29.60 Other gastritis without bleeding; E78.5 Hyperlipidemia, unspecified; E83.42 Hypomagnesemia; F10.229 Alcohol dependence with intoxication, unspecified; F32.9 Major depressive disorder, single episode, unspecified; F43.10 Post-traumatic stress disorder, unspecified; K22.10 Ulcer of esophagus without bleeding; K44.9 Diaphragmatic hernia without obstruction or gangrene; Z20.822 Contact with and (suspected) exposure to COVID-19; K56.0 Paralytic ileus; K76.0 Fatty (change of) liver, not elsewhere classified; M19.90 Unspecified osteoarthritis, unspecified site; M79.7 Fibromyalgia; Z79.82 Long term (current) use of aspirin; Z86.73 Personal history of transient ischemic attack (TIA), and cerebral infarction without residual deficits; Z87.891 Personal history of nicotine dependence; Z91.14 Patient's other noncompliance with medication regimen; Z99.11 Dependence on respirator [ventilator] status; Z79.899 Other long term (current) drug therapy; Z68.28 Body mass index [BMI] 28.0-28.9, adult; K31.7 Polyp of stomach and duodenum
CPT/HCPCS: 36415; 36600; 70496; 70498; 70551; 71045; 71250; 74018; 74174; 74176; 76700; 76937; 80048; 80053; 80076; 80202; 80320; 82140; 82330; 82375; 82550; 82607; 82728; 82805; 82962; 83036; 83540; 83550; 83605; 83735; 83880; 84100; 84145; 84484; 85014; 85018; 85025; 85027; 85044; 85384; 86850; 86900; 86920; 86927; 87070; 87077; 87106; 87186; 87426; 88305; 88312; 88313; 93005; 93970; 94002; 94003; 94640; 94667; 97162; 97164; 97167; 99291; A6261; C1725; C9113; J0330; J0360; J0456; J0610; J0690; J0692; J0696; J0770; J1815; J1940; J1956; J2060; J2185; J2250; J2270; J2354; J2543; J2704; J2765; J3010; J3370; J3411; J3430; J3475; J3480; J3490; J7030; J7050; J7060; J7070; J7608; P9016; P9017; Q9967; A4315; G0480

== ENCOUNTER 2021-09-29 12:12 | Inpatient (IN) | payer OTHER ==
[~2021-09-29] VITALS: Ht 175.3 cm; Wt 83.5 kg
[~2021-09-29 12:12] MED LIST: ATEN100T MT; LISI40TA13 MT; LORA2ORA5 PO; SILD20TA PO; SIMV-46 MT
[2021-09-29 12:42] LABS: HEMATOCRIT. 26.5 % (42.0-52.0); HEMOGLOBIN. 8.7 g/dL (14.0-18.0); MEAN CORPUSCULAR HEMOGLOBIN 29.2 pg (28.0-32.0); MEAN CORPUSCULAR VOLUME 89.1 fL (80.0-94.0); MEAN PLATELET VOLUME 9.6 fl (7.4-10.4); PLATELET 140 x1000/uL (130-400); RED BLOOD CELL COUNT 2.98 mill/uL (4.7-6.1); RED CELL DISTRIBUTION WIDTH 15.9 % (11.6-14.6)
[2021-09-29 12:53] LABS: CHLORIDE 124 mEq/L (98-107)
[2021-09-29 13:10] LABS: PLATELET ESTIMATE NORMAL
[2021-09-29 13:33] LABS: BG BASE EXCESS -4.1 mmol/L (-2.0-2.0); BG CARBOXYHEMOGLOBIN 0.3 % (0.5-1.5); BG DEOXYHEMOGLOBIN 0.5 % (0.0-5.0); BG FRACTION INSPIRED OXYGEN 100; BG METHEMOGLOBIN 0.2 % (0.0-1.5); BG OXYGEN SATURATION 99.5 % (92.0-98.5); BG PCO2 23.3 mmHg (35.0-45.0); BG PH 7.505 (7.350-7.450); BG PO2 519.4 mmHg (75.0-100.0); BG SAMPLE SITE RIGHT RADIAL; BG TOTAL HEMOGLOBIN 8.9 g/dL (12.0-18.0); BG VENT MODE VENT - AC
[2021-09-29 20:00] VITALS: BP_SYST 131; BP_DIAS 50; BP_DIAS 52
[2021-09-29 22:00] VITALS: BP 126/67
[2021-09-30] VITALS (12 sets, daily range): BP systolic 98–138; BP diastolic 34–87
[2021-09-30] MEDS ORDERED: DIPHENHYDRAMINE 50MG/ML VIAL IV PRN (00:30)
[2021-09-30] MEDS ORDERED: DEXTROSE 50% WATER 50ML SYRINGE IV PRN (00:30)
[2021-09-30] MEDS ORDERED: ONDANSETRON HCL 4MG/2ML INJ IV PRN (00:30)
[2021-09-30] MEDS: LORAZEPAM 2MG/ML CPJ IV PRN ×2 (02:59→16:01)
[2021-09-30] MEDS ORDERED: BLOOD SUGAR DIAGNOSTIC STRIP TEST SCH (06:00)
[2021-09-30 06:09] LABS: HEMOGLOBIN. 7.5 g/dL (14.0-18.0); MEAN CORPUSCULAR HEMOGLOBIN 29.5 pg (28.0-32.0); MEAN CORPUSCULAR VOLUME 90.7 fL (80.0-94.0); MEAN PLATELET VOLUME 9.4 fl (7.4-10.4); PLATELET 134 x1000/uL (130-400); RED BLOOD CELL COUNT 2.54 mill/uL (4.7-6.1); RED CELL DISTRIBUTION WIDTH 15.9 % (11.6-14.6)
[2021-09-30 06:23] LABS: CHLORIDE 127 mEq/L (98-107)
[2021-09-30] MEDS: BLOOD SUGAR DIAGNOSTIC STRIP TEST SCH ×2 (06:44→12:18)
[2021-09-30] MEDS ORDERED: INSULIN LISPRO 100 UNITS/ML SUBCUT SCH ×2 (08:00→12:00)
[2021-09-30] MEDS: ATENOLOL 50 MG TABLET PEG SCH (08:10)
[2021-09-30] MEDS: LISINOPRIL 40MG TABLET PEG SCH (08:11)
[2021-09-30] MEDS: DEXTROSE 5% WATER 1,000 ML IV SCH ×2 (09:15→22:45)
[2021-09-30 12:52] LABS: PLATELET ESTIMATE NORMAL
[2021-09-30] MEDS: ACETAMINOPHEN 650MG/20.3ML UDC PO PRN (15:07)
[2021-09-30] MEDS: GUAIFENESIN 200MG/10ML SUGAR FREE UDC PO SCH ×2 (15:07→23:51)
[2021-09-30] MEDS: IPRATROPIUM/ALBUTEROL 0.5-3(2.5)MG/3ML NEB HHN SCH ×2 (16:14→20:29)
[2021-10-01] VITALS (12 sets, daily range): BP systolic 105–155; BP diastolic 47–82
[2021-10-01] MEDS: IPRATROPIUM/ALBUTEROL 0.5-3(2.5)MG/3ML NEB HHN SCH ×6 (00:38→20:33)
[2021-10-01] MEDS: GUAIFENESIN 200MG/10ML SUGAR FREE UDC PO SCH ×3 (05:30→17:09)
[2021-10-01] MEDS: ATENOLOL 50 MG TABLET PEG SCH (09:40)
[2021-10-01] MEDS: LISINOPRIL 40MG TABLET PEG SCH (09:40)
[2021-10-01] MEDS: DEXTROSE 5% WATER 1,000 ML IV SCH (12:31)
[2021-10-01 16:24] LABS: HEMATOCRIT. 22.7 % (42.0-52.0); HEMOGLOBIN. 7.1 g/dL (14.0-18.0); MEAN CORPUSCULAR HEMOGLOBIN 29.3 pg (28.0-32.0); MEAN CORPUSCULAR VOLUME 93.8 fL (80.0-94.0); MEAN PLATELET VOLUME 9.5 fl (7.4-10.4); PLATELET 132 x1000/uL (130-400); RED BLOOD CELL COUNT 2.43 mill/uL (4.7-6.1)
[2021-10-01 16:40] LABS: CHLORIDE 122 mEq/L (98-107)
[2021-10-01 17:07] LABS: PLATELET ESTIMATE NORMAL
[2021-10-02] VITALS (16 sets, daily range): BP systolic 99–141; BP diastolic 45–87
[2021-10-02] MEDS: GUAIFENESIN 200MG/10ML SUGAR FREE UDC PO SCH ×5 (00:14→23:57)
[2021-10-02] MEDS: IPRATROPIUM/ALBUTEROL 0.5-3(2.5)MG/3ML NEB HHN SCH ×6 (00:39→20:20)
[2021-10-02] MEDS: DEXTROSE 5% WATER 1,000 ML IV SCH ×2 (02:15→17:41)
[2021-10-02] MEDS: LISINOPRIL 40MG TABLET PEG SCH (08:44)
[2021-10-02] MEDS: ATENOLOL 50 MG TABLET PEG SCH (08:45)
[2021-10-02] MEDS: LORAZEPAM 2MG/ML CPJ IV PRN (08:51)
[2021-10-02] MEDS: ACETAMINOPHEN 650MG/20.3ML UDC PO PRN ×2 (11:50→23:57)
[2021-10-02 19:32] LABS: BASOPHILS % 0.2 % (0.0-2.0); EOSINOPHILS % 2.1 % (0.0-5.0); HEMATOCRIT. 22.2 % (42.0-52.0); HEMOGLOBIN. 7.4 g/dL (14.0-18.0); LYMPHOCYTES % 19.1 % (20.0-50.0); MEAN CORPUSCULAR HEMOGLOBIN 29.4 pg (28.0-32.0); MEAN CORPUSCULAR VOLUME 88.5 fL (80.0-94.0); MEAN PLATELET VOLUME 9.4 fl (7.4-10.4); MONOCYTES % 7.8 % (2.0-8.0); NEUTROPHILS % 70.8 % (40.0-76.0); PLATELET 122 x1000/uL (130-400); RED BLOOD CELL COUNT 2.51 mill/uL (4.7-6.1); RED CELL DISTRIBUTION WIDTH 16.7 % (11.6-14.6)
[2021-10-02 19:51] LABS: CHLORIDE 116 mEq/L (98-107)
[2021-10-03] VITALS (12 sets, daily range): BP systolic 97–143; BP diastolic 42–96
[2021-10-03] MEDS: IPRATROPIUM/ALBUTEROL 0.5-3(2.5)MG/3ML NEB HHN SCH ×6 (00:33→20:07)
[2021-10-03] MEDS: LORAZEPAM 2MG/ML CPJ IV PRN (01:30)
[2021-10-03] MEDS: DEXTROSE 5% WATER 1,000 ML IV SCH ×2 (05:35→17:41)
[2021-10-03] MEDS: GUAIFENESIN 200MG/10ML SUGAR FREE UDC PO SCH ×3 (05:35→17:41)
[2021-10-03] MEDS: ACETAMINOPHEN 650MG/20.3ML UDC PO PRN ×2 (08:51→21:28)
[2021-10-03 09:17] LABS: HEMATOCRIT. 21.6 % (42.0-52.0); HEMOGLOBIN. 7.2 g/dL (14.0-18.0); MEAN CORPUSCULAR HEMOGLOBIN 29.4 pg (28.0-32.0); MEAN CORPUSCULAR VOLUME 88.1 fL (80.0-94.0); MEAN PLATELET VOLUME 9.5 fl (7.4-10.4); PLATELET 132 x1000/uL (130-400); RED BLOOD CELL COUNT 2.46 mill/uL (4.7-6.1); RED CELL DISTRIBUTION WIDTH 16.2 % (11.6-14.6)
[2021-10-03 09:33] LABS: CHLORIDE 112 mEq/L (98-107)
[2021-10-03] MEDS: LISINOPRIL 40MG TABLET PEG SCH (10:11)
[2021-10-03] MEDS: ATENOLOL 50 MG TABLET PEG SCH (10:11)
[2021-10-03 10:35] LABS: PLATELET ESTIMATE NORMAL
[2021-10-04] VITALS (17 sets, daily range): BP systolic 111–153; BP diastolic 46–89
[2021-10-04] MEDS: IPRATROPIUM/ALBUTEROL 0.5-3(2.5)MG/3ML NEB HHN SCH ×6 (00:09→20:52)
[2021-10-04] MEDS: GUAIFENESIN 200MG/10ML SUGAR FREE UDC PO SCH ×5 (00:26→23:57)
[2021-10-04] MEDS: DEXTROSE 5% WATER 1,000 ML IV SCH ×2 (05:42→20:50)
[2021-10-04 05:57] LABS: BASOPHILS % 0.1 % (0.0-2.0); EOSINOPHILS % 2.8 % (0.0-5.0); LYMPHOCYTES % 14.7 % (20.0-50.0); MEAN CORPUSCULAR VOLUME 87.2 fL (80.0-94.0); MEAN PLATELET VOLUME 10.2 fl (7.4-10.4); MONOCYTES % 7.7 % (2.0-8.0); NEUTROPHILS % 74.7 % (40.0-76.0); PLATELET 148 x1000/uL (130-400); RED BLOOD CELL COUNT 2.36 mill/uL (4.7-6.1); RED CELL DISTRIBUTION WIDTH 16.1 % (11.6-14.6)
[2021-10-04 06:19] LABS: CHLORIDE 108 mEq/L (98-107)
[2021-10-04 06:30] LABS: HEMOGLOBIN. 6.8 g/dL (14.0-18.0)
[2021-10-04 06:31] LABS: HEMATOCRIT. 20.6 % (42.0-52.0)
[2021-10-04] MEDS: ATENOLOL 50 MG TABLET PEG SCH (08:45)
[2021-10-04] MEDS: LISINOPRIL 40MG TABLET PEG SCH (08:45)
[2021-10-04] MEDS: SUCRALFATE 1 G/10 ML UDC PO SCH ×2 (17:25→20:26)
[2021-10-04] MEDS: METOCLOPRAMIDE HCL 10MG/2ML VIAL IV SCH ×2 (17:25→23:57)
[2021-10-04 20:23] LABS: HEMATOCRIT 23.3 % (42.0-52.0)
[2021-10-04] MEDS: ACETAMINOPHEN 650MG/20.3ML UDC PO PRN (20:50)
[2021-10-05] VITALS (11 sets, daily range): BP systolic 97–155; BP diastolic 45–86
[2021-10-05] MEDS: IPRATROPIUM/ALBUTEROL 0.5-3(2.5)MG/3ML NEB HHN SCH ×5 (00:13→15:58)
[2021-10-05] MEDS: METOCLOPRAMIDE HCL 10MG/2ML VIAL IV SCH ×3 (05:03→17:13)
[2021-10-05] MEDS: GUAIFENESIN 200MG/10ML SUGAR FREE UDC PO SCH ×3 (05:03→17:13)
[2021-10-05] MEDS: DEXTROSE 5% WATER 1,000 ML IV SCH (08:45)
[2021-10-05] MEDS ORDERED: PANTOPRAZOLE SODIUM 40 MG/VIAL IV SCH (09:00)
[2021-10-05] MEDS: LISINOPRIL 40MG TABLET PEG SCH (09:10)
[2021-10-05] MEDS: SUCRALFATE 1 G/10 ML UDC PO SCH ×3 (09:10→16:35)
[2021-10-05] MEDS: ATENOLOL 50 MG TABLET PEG SCH (09:12)
[2021-10-05 12:31] LABS: INR 1.2; PROTHROMBIN TIME 12.4 sec (9.6-11.0)
[2021-10-05 12:37] LABS: TOTAL IRON BINDING CAPACITY 123 ug/dL (250-450)
[2021-10-05 13:01] LABS: FOLIC ACID (FOLATE) SERUM 6.2 ng/mL (>5.38)
[2021-10-05] MEDS: ACETAMINOPHEN 650MG/20.3ML UDC PO PRN (16:35)
== END 2021-10-05 19:00 | DRG 130 ==
LOC: ER 12:12 → 5EST 13:11 → EDBEDREQSVC 13:32 → ENRESERV 14:27
PROVIDERS: ADMIT Internal Medicine; ATTEND Internal Medicine
PROC: 5A1955Z Respiratory Ventilation, Greater than 96 Consecutive Hours (ICD-10-PCS; principal; 2021-09-29)
PROC: 30233N1 Transfusion of Nonautologous Red Blood Cells into Peripheral Vein, Percutaneous Approach (ICD-10-PCS; 2021-10-02)
DX: J96.21 Acute and chronic respiratory failure with hypoxia (principal); R65.11 Systemic inflammatory response syndrome (SIRS) of non-infectious origin with acute organ dysfunction; G93.40 Encephalopathy, unspecified; E43 Unspecified severe protein-calorie malnutrition; L89.896 Pressure-induced deep tissue damage of other site; E87.0 Hyperosmolality and hypernatremia; L89.620 Pressure ulcer of left heel, unstageable; D64.9 Anemia, unspecified; E11.9 Type 2 diabetes mellitus without complications; Z99.11 Dependence on respirator [ventilator] status; Z93.0 Tracheostomy status; Z66 Do not resuscitate; E78.5 Hyperlipidemia, unspecified; J44.9 Chronic obstructive pulmonary disease, unspecified; K76.0 Fatty (change of) liver, not elsewhere classified; J98.11 Atelectasis; E87.8 Other disorders of electrolyte and fluid balance, not elsewhere classified; M79.7 Fibromyalgia; I10 Essential (primary) hypertension; Z20.822 Contact with and (suspected) exposure to COVID-19; F10.11 Alcohol abuse, in remission; F32.A Depression, unspecified; M19.90 Unspecified osteoarthritis, unspecified site; R13.10 Dysphagia, unspecified; Z93.1 Gastrostomy status; Z86.73 Personal history of transient ischemic attack (TIA), and cerebral infarction without residual deficits; Z87.11 Personal history of peptic ulcer disease; Z68.27 Body mass index [BMI] 27.0-27.9, adult; Z79.899 Other long term (current) drug therapy
CPT/HCPCS: 36415; 36600; 71045; 80048; 80053; 82270; 82375; 82607; 82728; 82746; 82805; 82962; 83036; 83540; 83550; 83605; 83880; 84484; 85014; 85018; 85025; 85044; 86850; 86900; 86920; 87426; 93005; 94002; 94003; 94640; 99291; C9113; J2060; J2765; J7070; P9016